=== PATIENT | male | born 1960 | race Caucasian/White ===

== ENCOUNTER 2016-09-28 10:29 | Inpatient (IN) ==
[2016-09-28] MEDS ORDERED: Furosemide 40 MG/4 ML VIAL IVP ONE (11:46)
[2016-09-28 12:49] LABS: Basophils % 0.4 %; Eosinophils # 0.1 K/mcL (0.0-0.6); Eosinophils % 1.8 %; Hematocrit 40.6 % (37.5-50.1); Hemoglobin 12.7 g/dL (12.9-16.9); Immature Granulocytes % 0.6 % (0-4); Lymphocytes # 0.5 K/mcL (0.6-4.6); Lymphocytes % 6.9 %; Mean Corpuscular HGB Conc 31.3 g/dL (31.6-35.5); Mean Corpuscular Hemoglobin 26.9 pg (28.0-33.3); Mean Platelet Volume 10.6 fL (9.4-12.4); Monocytes # 0.5 K/mcL (0.0-1.3); Monocytes % 6.8 %; Platelet Count 229 K/mcL (140-400); Red Blood Count 4.72 M/mcL (4.19-5.50); Red Cell Distribution Width 16.1 % (11.5-14.5); Segmented Neutrophils % 83.5 %
[2016-09-28 13:00] LABS: Bilirubin,Urine Negative (Negative); Blood,Urine Small (Negative); Clarity,Urine Clear (Clear); Color,Urine Yellow (Yellow); Glucose,Urine (UA) Normal (Normal); Ketones,Urine Negative (Negative); Leukocyte Esterase,Urine Negative (Negative); Nitrite,Urine Negative (Negative); Protein,Urine Negative (Neg-Trace); Specific Gravity,Urine 1.008 (1.010-1.025); Urobilinogen,Urine Normal (Normal)
[2016-09-28 13:03] LABS: Alanine Aminotransferase 16 Units/L (0-55); Albumin 3.5 g/dL (3.5-5.0); Albumin/Globulin Ratio 0.8 (1.1-2.2); Alkaline Phosphatase 61 Units/L (38-126); Aspartate Amino Transferase 26 Units/L (5-34); BUN/Creatinine Ratio 11 (6-26); Bilirubin,Total 0.8 mg/dL (0.2-1.2); Blood Urea Nitrogen 11 mg/dL (8-26); Calcium 9.4 mg/dL (8.6-10.8); Carbon Dioxide 32 mEq/L (19-29); Chloride 99 mEq/L (98-109); Globulin 4.2 g/dL (2.4-3.5); Glucose 98 mg/dL (70-99); Magnesium 2.3 mg/dL (1.6-2.6); Osmolality,Calculated 283 (280-300); Potassium 4.8 mEq/L (3.5-4.5); Sodium 137 mEq/L (136-145); Total Protein 7.7 g/dL (6.0-8.3); eGFR For African Americans > 60 (> 60); eGFR For Non-African Americans > 60 (> 60)
[2016-09-28 13:38] LABS: Bacteria,Urine Few per hpf (None-Few); Squamous Epithelial Cell,Urine Few per lpf (None-Few); WBC,Urine 0-3 per hpf (0-3)
--- NOTE | 2016-09-28 14:39 | Emergency Department Note ---
Disposition Clinical Impression: Anasarca, Morbid obesity Disposition: Admitted As Inpatient Condition: Fair Referrals: Erwin Mercado MD [Primary Care Provider] - Forms: Work/School Release, ED Satisfaction Letter Time of Disposition: 14:57 General Adult HPI - General Chief complaint: ED General Medical Stated complaint: BLE edema/scotal edema-sent per Dr Benitez Time Seen by Provider: 09/28/16 11:16 Source: patient Limitations: no limitations Nursing Notes Reviewed: Yes Vital Signs Reviewed: Yes - History of Present Illness HPI Narrative: 55-year-old in CDU because of painful scrotal edema. He has had scrotal edema evolving for the past 2 weeks. He had a single level mechanical fall 2 weeks ago at the outset. He was since seen in the ED and referred to Dr. Benitez. Dr. Benitez evaluated the patient along with a CT of the abdomen and pelvis and no injury was appreciated. He was since put on oral Lasix which she is taking for about a week with continued worsening of the scrotal edema. He was seen today by Dr. Benitez and referred back to the ED for IV diuretics. He was started on Bactrim last week think this might be related to panniculitis but there is been no response. He reports chronic erythema of the lower abdomen which is unchanged. Pt Subjective Complaint: Scrotal and penile pain Onset (ago): week(s) Location: genitals Radiation: non-radiation Pain Severity: moderate Pain Scale: 4 Quality: stabbing, aching Consistency: constant Improves with: nothing Worsens with: nothing Associated symptoms: Reports: denies other symptoms - Related Data Home Medications Medication Instructions Recorded Confirmed Aspirin Enteric Coated [Aspirin EC] 81 mg PO DAILY 07/26/16 09/28/16 FLUoxetine HCl [Prozac] 80 mg PO DAILY 07/26/16 09/28/16 Ferrous Sulfate [Iron] 325 mg PO DAILY 07/26/16 09/28/16 Lisinopril [Zestril] 40 mg PO DAILY 07/26/16 09/28/16 Omeprazole 40 mg PO DAILY 07/26/16 09/28/16 Potassium Chloride [Klor-Con 10 mg PO DAILY 07/26/16 09/28/16 Sprinkle] hydroCHLOROthiazide 12.5 mg PO DAILY 07/26/16 09/28/16 [Hydrochlorothiazide] ALPRAZolam [Xanax 0.5 MG Tablet] 0.5 mg PO BID PRN 09/28/16 09/28/16 Ibuprofen [Motrin] 200 - 800 mg PO Q6HR PRN 09/28/16 09/28/16 Menthol [Icy Hot] 1 patch TP AD PRN 09/28/16 09/28/16 Multivitamin [Multi-Day Vitamins] 1 tab PO DAILY 09/28/16 09/28/16 Sulfamethoxazole/Trimeth DS 1 tab PO BID 09/28/16 09/28/16 [Bactrim DS] Previous Rx's Medication Instructions Recorded Furosemide [Lasix] 40 mg PO DAILY #14 tablet 09/21/16 Allergies Allergy/AdvReac Type Severity Reaction Status Date / Time No Known Allergies Allergy Verified 09/28/16 10:31 All systems ED: reviewed and negative except as stated. Constitutional: Denies: fever, chills Cardiovascular: Denies: chest pain Gastrointestinal: Denies: abdominal pain, nausea, vomiting Genitourinary: Denies: dysuria Musculoskeletal: Denies: back pain Past Medical History - Past Medical History Attestation: Yes The following information was validated with the patient. Medical history: Reports: arthritis, DVT, GERD, hypertension, venous stasis Surgical history: Reports: colectomy, orthopedic, other, other Psychiatric history: Reports: anxiety, depression - Social History Smoking Status: Former smoker Smokeless Tobacco Status: No Alcohol use: Reports: rarely Drug use: Reports: none Physical Exam Morbidly obese male in no apparent distress. - General Limitations: no limitations General appearance: alert - Head Head exam: atraumatic, normocephalic - Eye Eye exam: Present: normal appearance - ENT ENT exam: normal exam - Neck Neck exam: Present: normal inspection - Chest Chest inspection: Present: normal inspection, symmetric chest wall rise - Respiratory Respiratory exam: Present: normal lung sounds bilaterally. Absent: respiratory distress - Cardiovascular Cardiovascular exam: Present: regular rate, normal rhythm - Abdominal Exam Abdominal exam: Present: soft, Non-Tender, other (Erythema along the lower abdomen and she was region which patient reports is typical for him) - Male exam: Present: other (Marketed scrotal edema bilaterally. Fair catheter is in place with good drainage.) - Expanded Lower Extremity Exam Lower leg exam: Present: swelling - Back Exam Back exam: Present: normal inspection. Absent: CVA tenderness (R), CVA tenderness (L) - Neurological Exam Neurological exam: Present: alert, oriented X3 - Psychiatric Psychiatric exam: Present: normal affect - Skin Skin exam: Present: warm, dry Course - Reevaluation(s) Reevaluation #1: D/W Dr. Ron to admit Time: 14:56 Vital Signs Temperature 98 F 09/28/16 10:31 Pulse Rate 74 09/28/16 10:31 Respiratory Rate 20 09/28/16 10:31 Blood Pressure 152/85 09/28/16 10:31 O2 Sat by Pulse Oximetry 92 09/28/16 10:31 Temperature 98 F 09/28/16 10:31 Pulse Rate 68 09/28/16 12:57 Respiratory Rate 18 09/28/16 12:57 Blood Pressure 140/77 09/28/16 12:57 O2 Sat by Pulse Oximetry 96 09/28/16 12:57 Oxygen Delivery Oxygen Delivery Room Air Medical Decision Making - Lab Data Result diagrams: 09/28/16 12:02 09/28/16 12:02 Lab Results 09/28/16 09/28/16 09/28/16 Range/Units 12:02 12:02 12:02 WBC 7.2 (4.3-11.1) K/mcL RBC 4.72 (4.19-5.50) M/mcL Hgb 12.7 L (12.9-16.9) g/dL Hct 40.6 (37.5-50.1) % MCV 86.0 (83.0-100.0) fL MCH 26.9 L (28.0-33.3) pg MCHC 31.3 L (31.6-35.5) g/dL RDW 16.1 H (11.5-14.5) % Plt Count 229 (140-400) K/mcL MPV 10.6 (9.4-12.4) fL Immature Gran % 0.6 (0-4) % Seg Neutrophils % 83.5 % Lymphocytes % 6.9 % Monocytes % 6.8 % Eosinophils % 1.8 % Basophils % 0.4 % Neutrophils # 6.0 (1.6-8.9) K/mcL Lymphocytes # 0.5 L (0.6-4.6) K/mcL Monocytes # 0.5 (0.0-1.3) K/mcL Eosinophils # 0.1 (0.0-0.6) K/mcL Basophils # 0.0 (0.0-0.2) K/mcL Sodium 137 (136-145) mEq/L Potassium 4.8 H (3.5-4.5) mEq/L Chloride 99 (98-109) mEq/L Carbon Dioxide 32 H (19-29) mEq/L BUN 11 (8-26) mg/dL Creatinine 0.97 (0.72-1.25) mg/dL Est GFR ( Amer) > 60 (> 60) Est GFR (Non-Af Amer) > 60 (> 60) BUN/Creatinine Ratio 11 (6-26) Glucose 98 (70-99) mg/dL Calculated Osmolality 283 (280-300) Calcium 9.4 (8.6-10.8) mg/dL Magnesium 2.3 (1.6-2.6) mg/dL Total Bilirubin 0.8 (0.2-1.2) mg/dL AST 26 (5-34) Units/L ALT 16 (0-55) Units/L Alkaline Phosphatase 61 (38-126) Units/L B-Natriuretic Peptide 31 (0-100) pg/mL Serum Total Protein 7.7 (6.0-8.3) g/dL Albumin 3.5 (3.5-5.0) g/dL Globulin 4.2 H (2.4-3.5) g/dL Albumin/Globulin Ratio 0.8 L (1.1-2.2) Urine Color (Yellow) Urine Clarity (Clear) Urine pH (5.0-8.0) pH Units Ur Specific Henderson (1.010-1.025) Urine Protein (Neg-Trace) mg/dL Urine Glucose (UA) (Normal) mg/dL Urine Ketones (Negative) mg/dL Urine Blood (Negative) Urine Nitrite (Negative) Urine Bilirubin (Negative) Urine Urobilinogen (Normal) mg/dL Ur Leukocyte Esterase (Negative) Urine Microscopic RBC (0-3) per hpf Urine Microscopic WBC (0-3) per hpf Ur Squamous Epith Cells (None-Few) per lpf Urine Bacteria (None-Few) per hpf 09/28/16 Range/Units 12:24 WBC (4.3-11.1) K/mcL RBC (4.19-5.50) M/mcL Hgb (12.9-16.9) g/dL Hct (37.5-50.1) % MCV (83.0-100.0) fL MCH (28.0-33.3) pg MCHC (31.6-35.5) g/dL RDW (11.5-14.5) % Plt Count (140-400) K/mcL MPV (9.4-12.4) fL Immature Gran % (0-4) % Seg Neutrophils % % Lymphocytes % % Monocytes % % Eosinophils % % Basophils % % Neutrophils # (1.6-8.9) K/mcL Lymphocytes # (0.6-4.6) K/mcL Monocytes # (0.0-1.3) K/mcL Eosinophils # (0.0-0.6) K/mcL Basophils # (0.0-0.2) K/mcL Sodium (136-145) mEq/L Potassium (3.5-4.5) mEq/L Chloride (98-109) mEq/L Carbon Dioxide (19-29) mEq/L BUN (8-26) mg/dL Creatinine (0.72-1.25) mg/dL Est GFR ( Amer) (> 60) Est GFR (Non-Af Amer) (> 60) BUN/Creatinine Ratio (6-26) Glucose (70-99) mg/dL Calculated Osmolality (280-300) Calcium (8.6-10.8) mg/dL Magnesium (1.6-2.6) mg/dL Total Bilirubin (0.2-1.2) mg/dL AST (5-34) Units/L ALT (0-55) Units/L Alkaline Phosphatase (38-126) Units/L B-Natriuretic Peptide (0-100) pg/mL Serum Total Protein (6.0-8.3) g/dL Albumin (3.5-5.0) g/dL Globulin (2.4-3.5) g/dL Albumin/Globulin Ratio (1.1-2.2) Urine Color Yellow (Yellow) Urine Clarity Clear (Clear) Urine pH 7.0 (5.0-8.0) pH Units Ur Specific Henderson 1.008 L (1.010-1.025) Urine Protein Negative (Neg-Trace) mg/dL Urine Glucose (UA) Normal (Normal) mg/dL Urine Ketones Negative (Negative) mg/dL Urine Blood Small H (Negative) Urine Nitrite Negative (Negative) Urine Bilirubin Negative (Negative) Urine Urobilinogen Normal (Normal) mg/dL Ur Leukocyte Esterase Negative (Negative) Urine Microscopic RBC 5-15 H (0-3) per hpf Urine Microscopic WBC 0-3 (0-3) per hpf Ur Squamous Epith Cells Few (None-Few) per lpf Urine Bacteria Few (None-Few) per hpf
[2016-09-28] MEDS ORDERED: Naloxone 0.4 MG/ML INJ IVP PRN (18:27)
--- NOTE | 2016-09-28 18:38 | Internal Med History&Physical ---
<Vamshi Dc - Last Filed: 09/28/16 20:29> Date of Encounter: 09/28/16 Time of Encounter: 16:00 Assessment and Plan (1) Scrotal edema Current visit: Yes Status: Acute Patient presents with acute scrotal edema and pain which he states has worsened over the past week. Patient was seen previously in the ED and placed on PO Bactrim on 09/25/16 of which he has taken 5 pills. He states the scrotal edema has only become worse. Patient placed on IV ceftriaxone 1 gm Q12 due to BMI and body habitus. Culture of the penis and suprapubic area ordered due to discharge. Urine culture ordered. Urology consult ordered. Will continue IVP Lasix 40 mg BID. (2) Prostatic hypertrophy Current visit: Yes Status: Suspected Patient presents with inability to urinate or ejaculate due to suspected prostatic hypertrophy. Fair catheter placed after 4 attempts. Urology consult ordered. PSA ordered. (3) Urinary (tract) obstruction Current visit: Yes Status: Acute Patient presents with inability to urinate or ejaculate. Fair catheter placed after 4 attempts. Urology consult ordered. (4) GERD (gastroesophageal reflux disease) Current visit: Yes Status: Chronic Patient presents with history of GERD. IV Protonix 40 mg daily ordered. Qualifiers: Esophagitis presence: esophagitis presence not specified Qualified Code(s) : K21.9 - Gastro-esophageal reflux disease without esophagitis (5) HTN (hypertension) Current visit: Yes Status: Chronic Patient presents with history of chronic hypertension. Monitor patient and vital signs. Will continue patient's lisinopril. Qualifiers: Hypertension type: essential hypertension Qualified Code(s): I10 - Essential (primary) hypertension (6) Morbid obesity Current visit: Yes Status: Chronic Patient presents with morbid obesity with BMI of 69.5. Patient states that he is currently going to be seen for gastric bypass surgery. Consult for nutrition placed to help educate patient with possible dietary plans. (7) DVT prophylaxis Current visit: Yes Status: Acute Patient to be placed on DVT prophylaxis due to admission protocol and bed rest status. Heparin 5,000 units SQ Q8 ordered. Internal Medicine - H&P: HPI Chief complaint: Painful scrotal edema Admitted From: Emergency Dept Plans for Post Hospital Care: Home History of present illness: Mr. Roca is a 55 year old male who presents from the ED with chief complaint of extreme scrotal swelling and pain. Patient states he fell approximately 1 week ago and began experiencing scrotal edema. He states he was seen at the ED previously and sent home on 800 mg twice a day Bactrim on 09/25/16. He reports his scrotal edema became much worse bring him back to the ED again upon Dr. Benitez's referral. Attempts to catheterize the patient took 4 tries which may suggest prostatic hypertrophy. Patient also states he has extreme burning when urinating, even in the catheter. Mr. Roca also reports he is able unable to ejaculate during sex which may also be due to prostatic hypertrophy. He has a history of arthritis, DVT in 2013 following knee surgery on his right knee, GERD , hypertension, and venous stasis. Upon examination, patient suprapubic area and penis appear to have discharge. Patient is at moderate risk for infection based on symptomatology will be placed as inpatient with orders for IV ceftriaxone 1 g every 12, urology consult due to repeated attempts for catheterization and suspected prostatic hypertrophy, culture of the suprapubic and penis area, consults for social work and PT, and urine culture. Patient to be monitored closely for signs of increased infection. Time spent with patient > 40 minutes. Past Med Surg Social Fam HX - Past Medical History Source: patient Medical history: arthritis, DVT, GERD, hypertension, venous stasis Psychiatric history: anxiety, depression - Past Surgical History Surgical History: colectomy, herniorrhaphy, orthopedic, other (Rt/Lt knee surgeries, Rt/Lt carpal tunnel surgeries, Neck surgery (C4,5,6,7)), other ( Tonsillectomy) - Social History Smoking Status: Former smoker Packs per day: 4 PPD - reports quitting in 2013 Smokeless Tobacco Status: No Alcohol use: rarely Drug use: none Current living situation: Home, With Family Activity Level: Independent ambulation Recent Out of Country Travel Within the Last 8 Weeks: No Exposure or Possible Exposure to Illness During Travel: No - Family History Father Race: Family Member Ethnicity: Non- Living Status: Age at : 84 Cause of : Prostate cancer Hx Family Cardiac Disorders: Yes (NV, HD) Hx Family Cancer: Yes (Prostate) Mother Race: Family Member Ethnicity: Non- Living Status: Still Living Hx Family Cardiac Disorders: Yes (NV) Hx Family Endocrine Disorder: Yes (DM) Hx Family Neurologic Disorders: Yes (Dementia) Brother History Unknown: Yes Sister Race: Family Member Ethnicity: Non- Living Status: Age at : 46 Cause of : PE following knee replacement Hx Family Cardiac Disorders: Yes (PE) Internal Medicine - H&P: Meds Aspirin Enteric Coated [Aspirin EC] 81 mg PO DAILY 07/26/16 [History] FLUoxetine HCl [Prozac] 80 mg PO DAILY 07/26/16 [History] Ferrous Sulfate [Iron] 325 mg PO DAILY 07/26/16 [History] Lisinopril [Zestril] 40 mg PO DAILY 07/26/16 [History] Omeprazole 40 mg PO DAILY 07/26/16 [History] Potassium Chloride [Klor-Con Sprinkle] 10 mg PO DAILY 07/26/16 [History] hydroCHLOROthiazide [Hydrochlorothiazide] 12.5 mg PO DAILY 07/26/16 [History] Furosemide [Lasix] 40 mg PO DAILY #14 tablet 09/21/16 [Rx] ALPRAZolam [Xanax 0.5 MG Tablet] 0.5 mg PO BID PRN 09/28/16 [History] Ibuprofen [Motrin] 200 - 800 mg PO Q6HR PRN 09/28/16 [History] Menthol [Icy Hot] 1 patch TP AD PRN 09/28/16 [History] Multivitamin [Multi-Day Vitamins] 1 tab PO DAILY 09/28/16 [History] Sulfamethoxazole/Trimeth DS [Bactrim DS] 1 tab PO BID 09/28/16 [History] Allergies No Known Allergies Allergy (Verified 09/28/16 10:31) All Systems PM: A 10-system review of systems was performed and is negative for pertinent findings except as documented above in the HPI. - Constitutional Constitutional: as per HPI, falls, no chills, no fever(s), no night sweats - EENT Eyes: no change in vision, no discharge, no pain, no photophobia Ears: no ear discharge, no ear pain, no tinnitus Nose, mouth and throat: no dysphagia, no nasal discharge, no neck pain, no sore throat - Breasts Breasts: as per HPI - Cardiovascular Cardiovascular ROS IM: no chest pain, no diaphoresis, no dyspnea, no lightheadedness, no palpitations, no syncope - Respiratory Respiratory: no cough, no dyspnea, no wheezing, no excessive phlegm production - Gastrointestinal Gastrointestinal: no abdominal pain, no diarrhea, no hematemesis, no hematochezia, no melena, no nausea, no vomiting - Genitourinary Genitourinary ROS male: as per HPI, difficulty urinating, genital pain, scrotal swelling, testicular pain, urinary hesitancy, other (Urinary burning) - Musculoskeletal Musculoskeletal ROS IM: no numbness, no tingling - Integumentary Integumentary IM: no rash, no unusual bruising - Neurological Neurological ROS: no confusion, no convulsions, no focal weakness, no numbness, no tingling, no tremor(s) - Psychiatric Psychiatric: as per HPI - Endocrine Endocrine IM: as per HPI - Hematologic/Lymphatic Hematologic/Lymphatic: no easy bruising - Allergic/Immunologic Allergic/Immunologic: as per HPI - Constitutional Vitals: Temp Pulse Resp BP Pulse Ox 98.1 F 64 16 127/83 93 09/28/16 16:03 09/28/16 16:03 09/28/16 16:03 09/28/16 16:03 09/28/16 16:03 General appearance: Present: cooperative, mild distress, A&O X 3, morbidly obese , pleasant, answers questions appropriately - Head Head exam: Present: atraumatic, normocephalic - Eye Eye exam: Present: PERRL, conjuntiva pink, sclera anicteric Pupils: Present: PERRL - ENT ENT exam: Present: normal exam, normal external ear exam - Neck Neck exam general surgery: Present: supple, trachea midline. Absent: lymphadenopathy - Respiratory Respiratory exam: Present: CTAB. Absent: accessory muscle use, rales, rhonchi, wheezes - Cardiovascular Cardiovascular exam: Present: RRR, +S1, +S2. Absent: diastolic murmur, gallop, rubs, systolic murmur - GI/Abdominal GI/Abdominal exam: Present: normal bowel sounds, soft, no peritoneal signs. Absent: distended, tenderness - Rectal Rectal exam: Present: deferred - exam: Present: scrotal swelling, testicular tenderness External exam: Present: erythema, swelling - Extremities Exam Extremities exam: Present: pedal edema, warm, radial pulses palpable and symetrical - Back Exam Back exam: Present: normal inspection - Neurological Exam Neurological exam: Present: CN II-XII intact, oriented X3, no focal deficits. Absent: pronater drift, facial droop, speech deficit - Psychiatric Psychiatric exam: Present: normal affect, normal mood - Skin Skin exam: Present: dry, intact Internal Med - H&P Results - Labs CBC & Chem 7: 09/28/16 12:02 09/28/16 12:02 - Diagnostic Studies Chest x-ray Additional comments: Impressions Chest X-Ray 09/28/16 11:47 IMPRESSION: No active cardiopulmonary disease D/ / Meliton Rowe MD / Meliton Rowe MD Interpreting Provider: Meliton Rowe MD <Kp Ron P - Last Filed: 09/28/16 21:10> Date of Encounter: 09/28/16 Internal Medicine - H&P: HPI History of present illness: Mr. Roca is a 55 year old male All Systems PM: A 10-system review of systems was performed and is negative for pertinent findings except as documented above in the HPI. - Constitutional Vitals: Temp Pulse Resp BP Pulse Ox 97.7 F 69 17 137/80 96 09/28/16 20:59 09/28/16 20:59 09/28/16 20:59 09/28/16 20:59 09/28/16 21:02 Internal Med - H&P Results - Labs CBC & Chem 7: 09/28/16 12:02 09/28/16 12:02 - Attending Attestation I examined this patient and my medical decision-making was reviewed with the Resident Physician/CARTRIDGE LO[employer]ER. I agree with the documented findings, disposition and treatment plan as described except to the extent set forth below. Need urology evaluation for possible benign hypertrophy of prostate. We will get ultrasound of scrotum tomorrow
[2016-09-28] MEDS: Acetaminophen 325 MG TABLET PO PRN (20:55)
[2016-09-28] MEDS: ALPRAZolam 0.5 MG TABLET PO PRN (21:40)
[2016-09-28] MEDS: Pantoprazole 40 MG VIAL IVP SCH (21:40)
[2016-09-28] MEDS: Furosemide 40 MG/4 ML VIAL IVP SCH (21:40)
[2016-09-29] MEDS: *HR* Heparin 5,000 UNIT/ML VIAL SQ SCH ×4 (00:08→23:03)
[2016-09-29] MEDS ORDERED: *HR* LORazepam 2 MG/ML VIAL IVP ONE (02:30)
[2016-09-29 04:29] LABS: Bilirubin,Urine Negative (Negative); Blood,Urine Negative (Negative); Clarity,Urine Clear (Clear); Color,Urine Yellow (Yellow); Glucose,Urine (UA) Normal (Normal); Ketones,Urine Negative (Negative); Leukocyte Esterase,Urine Small (Negative); Nitrite,Urine Negative (Negative); PH,Urine 6.5 pH Units (5.0-8.0); Protein,Urine Negative (Neg-Trace); Specific Gravity,Urine 1.016 (1.010-1.025)
[2016-09-29 04:30] LABS: Bacteria,Urine None Seen per hpf (None-Few); Hyaline Casts,Urine None Seen per lpf (None-Few); Squamous Epithelial Cell,Urine Moderate per lpf (None-Few); WBC,Urine 0-3 per hpf (0-3)
[2016-09-29 05:43] LABS: Basophils % 0.7 %; Eosinophils # 0.2 K/mcL (0.0-0.6); Eosinophils % 3.3 %; Hematocrit 39.4 % (37.5-50.1); Hemoglobin 12.4 g/dL (12.9-16.9); Immature Granulocytes % 0.5 % (0-4); Lymphocytes # 0.7 K/mcL (0.6-4.6); Lymphocytes % 12.3 %; Mean Corpuscular HGB Conc 31.5 g/dL (31.6-35.5); Mean Corpuscular Volume 85.7 fL (83.0-100.0); Mean Platelet Volume 10.4 fL (9.4-12.4); Monocytes # 0.5 K/mcL (0.0-1.3); Monocytes % 9.8 %; Neutrophils # 4.1 K/mcL (1.6-8.9); Platelet Count 242 K/mcL (140-400); Red Cell Distribution Width 16.2 % (11.5-14.5); Segmented Neutrophils % 73.4 %
[2016-09-29 05:56] LABS: Hemoglobin A1C 5.7 %
[2016-09-29 06:09] LABS: Alanine Aminotransferase 15 Units/L (0-55); Albumin 3.2 g/dL (3.5-5.0); Albumin/Globulin Ratio 0.8 (1.1-2.2); Alkaline Phosphatase 60 Units/L (38-126); Aspartate Amino Transferase 17 Units/L (5-34); BUN/Creatinine Ratio 11 (6-26); Bilirubin,Total 0.9 mg/dL (0.2-1.2); Blood Urea Nitrogen 12 mg/dL (8-26); Calcium 9.1 mg/dL (8.6-10.8); Carbon Dioxide 32 mEq/L (19-29); Chloride 97 mEq/L (98-109); Chol/HDL Ratio 4.9 (0-4.9); Cholesterol 168 mg/dL (< 200); Globulin 3.8 g/dL (2.4-3.5); Glucose 108 mg/dL (70-99); HDL Cholesterol 34 mg/dL (40-59); LDL Cholesterol,Calculated 112 mg/dL (0-99); Osmolality,Calculated 282 (280-300); Phosphorous 5.1 mg/dL (2.3-4.7); Sodium 136 mEq/L (136-145); Triglycerides 108 mg/dL (< 150); eGFR For African Americans > 60 (> 60); eGFR For Non-African Americans > 60 (> 60)
[2016-09-29] MEDS: Pantoprazole 40 MG VIAL IVP SCH (08:51)
[2016-09-29] MEDS: hydroCHLOROthiazide 25 MG TABLET PO SCH (08:52)
[2016-09-29] MEDS: Aspirin Enteric Coated 81 MG Tablet PO SCH (08:52)
[2016-09-29] MEDS: Lisinopril 20 MG TABLET PO SCH (08:52)
[2016-09-29] MEDS: FLUoxetine 20 MG CAPSULE PO SCH (08:52)
[2016-09-29] MEDS: Furosemide 40 MG/4 ML VIAL IVP SCH ×2 (08:52→16:32)
[2016-09-29] MEDS: ALPRAZolam 0.5 MG TABLET PO PRN (08:58)
--- NOTE | 2016-09-29 09:52 | Urology - Consult Note ---
Date of Encounter: 09/29/16 Time of Encounter: 09:50 - Assessment and Plan (1) Scrotal edema Current Visit: Yes Status: Acute Assessment and plan: scrotal elevation at all times. continue lasix per primary team. Will continue to follow. continue with catheter. Urology CN:[email or web address] Consult date: 09/29/16 Reason for consult Urology: Other (scrotal edema) Requesting physician: Kp Ron History of present illness: Jeramie is a 56 y/o male with history of recent admission to the hospital for scrotal edema. Patient has had good uop since arrival to hospital. The patient states that his scrotal swelling is about the same. Past Med Surg Social Fam HX - Past Medical History Medical history: arthritis, DVT, GERD, hypertension, venous stasis Psychiatric history: anxiety, depression - Past Surgical History Surgical History: colectomy, herniorrhaphy, orthopedic, other (Rt/Lt knee surgeries, Rt/Lt carpal tunnel surgeries, Neck surgery (C4,5,6,7)), other ( Tonsillectomy) - Social History Smoking Status: Former smoker Packs per day: 4 PPD - reports quitting in 2012 Smokeless Tobacco Status: No Alcohol use: rarely Drug use: none - Family History Father Race: Family Member Ethnicity: Non- Living Status: Age at : 84 Cause of : Prostate cancer Hx Family Cardiac Disorders: Yes ([place], HD) Hx Family Cancer: Yes (Prostate) Mother Race: Family Member Ethnicity: Non- Living Status: Still Living Hx Family Cardiac Disorders: Yes ([place]) Hx Family Endocrine Disorder: Yes (DM) Hx Family Neurologic Disorders: Yes (Dementia) Brother History Unknown: Yes Sister Race: Family Member Ethnicity: Non- Living Status: Age at : 46 Cause of : PE following knee replacement Hx Family Cardiac Disorders: Yes (PE) Medications and Allergies Aspirin Enteric Coated [Aspirin EC] 81 mg PO DAILY 07/26/16 [History] FLUoxetine HCl [Prozac] 80 mg PO DAILY 07/26/16 [History] Ferrous Sulfate [Iron] 325 mg PO DAILY 07/26/16 [History] Lisinopril [Zestril] 40 mg PO DAILY 07/26/16 [History] Omeprazole 40 mg PO DAILY 07/26/16 [History] Potassium Chloride [Klor-Con Sprinkle] 10 mg PO DAILY 07/26/16 [History] hydroCHLOROthiazide [Hydrochlorothiazide] 12.5 mg PO DAILY 07/26/16 [History] Furosemide [Lasix] 40 mg PO DAILY #14 tablet 09/21/16 [Rx] ALPRAZolam [Xanax 0.5 MG Tablet] 0.5 mg PO BID PRN 09/28/16 [History] Ibuprofen [Motrin] 200 - 800 mg PO Q6HR PRN 09/28/16 [History] Menthol [Icy Hot] 1 patch TP AD PRN 09/28/16 [History] Multivitamin [Multi-Day Vitamins] 1 tab PO DAILY 09/28/16 [History] Sulfamethoxazole/Trimeth DS [Bactrim DS] 1 tab PO BID 09/28/16 [History] Allergies No Known Allergies Allergy (Verified 09/28/16 10:31) Review of Systems - Constitutional no chills - EENT Nose, mouth and throat: no dizziness - Cardiovascular no chest pain - Respiratory no cough - Gastrointestinal no abdominal pain - Genitourinary as per HPI Exam Initial Vital Signs Temp Pulse Resp BP Pulse Ox 98 F 74 20 152/85 92 09/28/16 10:31 09/28/16 10:31 09/28/16 10:31 09/28/16 10:31 09/28/16 10:31 - General physical appearance Present: well developed - Eyes Present: PERRL - ENT Present: normal nares - Neck Present: no masses - Respiratory Present: normal respiratory effort - Cardiovascular Cardiovascular exam IM: RRR - Abdomen Abdomen: Present: soft - Genitourinary other (marked scrotal edema) Urology Results - Labs 09/29/16 05:21 09/29/16 05:21 Abnormal lab results Hgb 12.4 g/dL (12.9-16.9) L 09/29/16 05:21 MCH 27.0 pg (28.0-33.3) L 09/29/16 05:21 MCHC 31.5 g/dL (31.6-35.5) L 09/29/16 05:21 RDW 16.2 % (11.5-14.5) H 09/29/16 05:21 Chloride 97 mEq/L (98-109) L 09/29/16 05:21 Carbon Dioxide 32 mEq/L (19-29) H 09/29/16 05:21 Glucose 108 mg/dL (70-99) H 09/29/16 05:21 Hemoglobin A1c 5.7 % (-5.6) H 09/29/16 05:21 Phosphorus 5.1 mg/dL (2.3-4.7) H 09/29/16 05:21 Albumin 3.2 g/dL (3.5-5.0) L 09/29/16 05:21 Globulin 3.8 g/dL (2.4-3.5) H 09/29/16 05:21 Albumin/Globulin Ratio 0.8 (1.1-2.2) L 09/29/16 05:21 LDL Cholesterol, Calc 112 mg/dL (0-99) H 09/29/16 05:21 HDL Cholesterol 34 mg/dL (40-59) L 09/29/16 05:21 Urine Urobilinogen 2.0 mg/dL (Normal) H 09/29/16 04:00 Ur Leukocyte Esterase Small (Negative) H 09/29/16 04:00 Urine Microscopic RBC 3-5 per hpf (0-3) H 09/29/16 04:00 Ur Squamous Epith Cells Moderate per lpf (None-Few) H 09/29/16 04:00 Ur Culture Indicated? YES (NO) A 09/29/16 04:00 Diabetes panel 09/29/16 09/29/16 Range/Units 05:21 05:21 Sodium 136 (136-145) mEq/L Potassium 4.0 (3.5-4.5) mEq/L Chloride 97 L (98-109) mEq/L Carbon Dioxide 32 H (19-29) mEq/L BUN 12 (8-26) mg/dL Creatinine 1.05 (0.72-1.25) mg/dL Glucose 108 H (70-99) mg/dL Hemoglobin A1c 5.7 H ( - 5.6) % Calcium 9.1 (8.6-10.8) mg/dL AST 17 (5-34) Units/L ALT 15 (0-55) Units/L Alkaline Phosphatase 60 (38-126) Units/L Albumin 3.2 L (3.5-5.0) g/dL Triglycerides 108 (< 150) mg/dL HDL Cholesterol 34 L (40-59) mg/dL Calcium panel 09/29/16 Range/Units 05:21 Calcium 9.1 (8.6-10.8) mg/dL Phosphorus 5.1 H (2.3-4.7) mg/dL Albumin 3.2 L (3.5-5.0) g/dL Pituitary panel 09/29/16 Range/Units 05:21 Sodium 136 (136-145) mEq/L Potassium 4.0 (3.5-4.5) mEq/L Chloride 97 L (98-109) mEq/L Carbon Dioxide 32 H (19-29) mEq/L BUN 12 (8-26) mg/dL Creatinine 1.05 (0.72-1.25) mg/dL Glucose 108 H (70-99) mg/dL Calcium 9.1 (8.6-10.8) mg/dL Adrenal panel 09/29/16 Range/Units 05:21 Sodium 136 (136-145) mEq/L Potassium 4.0 (3.5-4.5) mEq/L Chloride 97 L (98-109) mEq/L Carbon Dioxide 32 H (19-29) mEq/L BUN 12 (8-26) mg/dL Creatinine 1.05 (0.72-1.25) mg/dL Glucose 108 H (70-99) mg/dL Calcium 9.1 (8.6-10.8) mg/dL Total Bilirubin 0.9 (0.2-1.2) mg/dL AST 17 (5-34) Units/L ALT 15 (0-55) Units/L Alkaline Phosphatase 60 (38-126) Units/L Albumin 3.2 L (3.5-5.0) g/dL All other labs normal. Consult Discharge Plan - Plan Referrals: Erwin Mercado MD [Primary Care Provider] -
--- NOTE | 2016-09-29 10:04 | Internal Med Progress Note ---
<Mile Avendano - Last Filed: 09/29/16 17:54> Date of Encounter: 09/29/16 Time of Encounter: 10:00 - Assessment and plan (1) Scrotal edema Current Visit: Yes Status: Acute Assessment and plan: Scrotal edema that is tender, non erythematous Maybe infection due to penile discharge and worsening of edema. But cannot rule out trauma induced edema and inflammation due to recent trauma. Normal WBC 5.5, afebrile Plan: -continue lasix -scrotal elevation -continue rocephin -cultures for urine pending -culture for wound pending -U/S for scrotum ordered -will continue to monitor (2) Prostatic hypertrophy Current Visit: Yes Status: Suspected Assessment and plan: Prostatic hypertrophy. Patient had urinary retention which he admits has gotten worse. He reports 1tsp urination this past week. Fair cath in place after 4 attempts to insert (3) Urinary (tract) obstruction Current Visit: Yes Status: Acute Assessment and plan: Fair cath placed. See above (4) HTN (hypertension) Current Visit: Yes Status: Chronic Qualifiers: Hypertension type: essential hypertension Qualified Code(s): I10 - Essential (primary) hypertension (5) GERD (gastroesophageal reflux disease) Current Visit: Yes Status: Chronic Assessment and plan: History of GERD Continue home medication of omeprazole Patient has no complaints about nausea and vomiting Qualifiers: Esophagitis presence: esophagitis presence not specified Qualified Code(s) : K21.9 - Gastro-esophageal reflux disease without esophagitis - Subjective Interval history: Patient is sitting up in bed comfortably watching television He stated to still have scrotal tenderness he denies chest pain, shortness of breath, fever, chills, nausea, vomiting - Constitutional Vitals: Temp Pulse Resp BP Pulse Ox 97.7 F 64 18 122/81 94 09/29/16 07:02 09/29/16 07:02 09/29/16 07:02 09/29/16 07:02 09/29/16 07:02 General appearance: Present: cooperative, mild distress, A&O X 3, morbidly obese , pleasant, answers questions appropriately Exam: Gen.: Vitals noted. No acute distress. AAOx3 HEENT: oropharynx clear, Normocephalic, atraumatic Neck: Supple. No adenopathy. Cardiac: RRR, no murmur, +S1/S2 Pulmonary: mild diffuse wheezing and coarse breath sounds throughout both lungs , equal chest expansion Abdomen: soft, nontender, Bowel sounds noted, no guarding Scrotum: no erythema, prominent swelling Back: Nontender throughout. Extremities: BLE edema, no cyanosis or clubbing Neuro: A&Ox3, moves all extremities, no focal deficits Psych: Appropriate mood and behavior Internal Medicine: Result - Labs CBC & Chem 7: 09/29/16 05:21 09/29/16 05:21 Labs: Short CBC 09/29/16 Range/Units 05:21 WBC 5.5 (4.3-11.1) K/mcL Hgb 12.4 L (12.9-16.9) g/dL Hct 39.4 (37.5-50.1) % Plt Count 242 (140-400) K/mcL Neutrophils # 4.1 (1.6-8.9) K/mcL BMP 09/29/16 05:21 Sodium 136 Potassium 4.0 Chloride 97 L Carbon Dioxide 32 H BUN 12 Creatinine 1.05 Glucose 108 H Calcium 9.1 Liver Function 09/29/16 Range/Units 05:21 Total Bilirubin 0.9 (0.2-1.2) mg/dL AST 17 (5-34) Units/L ALT 15 (0-55) Units/L Alkaline Phosphatase 60 (38-126) Units/L Albumin 3.2 L (3.5-5.0) g/dL Urine 09/29/16 Range/Units 04:00 Urine Color Yellow (Yellow) Urine Clarity Clear (Clear) Urine pH 6.5 (5.0-8.0) pH Units Ur Specific [place] 1.016 (1.010-1.025) Urine Protein Negative (Neg-Trace) mg/dL Urine Glucose (UA) Normal (Normal) mg/dL - VTE Documentation of Mechanical Device: Graduated compression elastic hosiery Consult Discharge Plan - Plan Referrals: Erwin Mercado MD [Primary Care Provider] - 10/06/16 10:40 am () <Kp Ron - Last Filed: 09/29/16 18:18> Date of Encounter: 09/29/16 - Constitutional Vitals: Temp Pulse Resp BP Pulse Ox 98.7 F 64 18 112/71 92 09/29/16 15:38 09/29/16 15:38 09/29/16 15:38 09/29/16 15:38 09/29/16 15:38 Internal Medicine: Result - Labs CBC & Chem 7: 09/29/16 05:21 09/29/16 05:21 Labs: Short CBC 09/29/16 Range/Units 05:21 WBC 5.5 (4.3-11.1) K/mcL Hgb 12.4 L (12.9-16.9) g/dL Hct 39.4 (37.5-50.1) % Plt Count 242 (140-400) K/mcL Neutrophils # 4.1 (1.6-8.9) K/mcL BMP 09/29/16 05:21 Sodium 136 Potassium 4.0 Chloride 97 L Carbon Dioxide 32 H BUN 12 Creatinine 1.05 Glucose 108 H Calcium 9.1 Liver Function 09/29/16 Range/Units 05:21 Total Bilirubin 0.9 (0.2-1.2) mg/dL AST 17 (5-34) Units/L ALT 15 (0-55) Units/L Alkaline Phosphatase 60 (38-126) Units/L Albumin 3.2 L (3.5-5.0) g/dL Urine 09/29/16 Range/Units 04:00 Urine Color Yellow (Yellow) Urine Clarity Clear (Clear) Urine pH 6.5 (5.0-8.0) pH Units Ur Specific [place] 1.016 (1.010-1.025) Urine Protein Negative (Neg-Trace) mg/dL Urine Glucose (UA) Normal (Normal) mg/dL - Impressions Impressions Scrotum Ultrasound 09/29/16 10:30 IMPRESSION: Marked edema of the scrotal wall. Small bilateral hydroceles. No other significant abnormality. D/ / Vivek Zavala MD / Vivek Zavala MD Interpreting Provider: Vivek Zavala MD - Attending Attestation I examined this patient and my medical decision-making was reviewed with the Resident Physician. I agree with the documented findings, disposition and treatment plan as described except to the extent set forth below. Ultrasound SCROTUM: MINIMAL BILATERAL HYDROCELE. WE will follow recommendations from urology
[2016-09-29] MEDS: Acetaminophen 325 MG TABLET PO PRN (12:36)
[2016-09-30 05:22] LABS: Basophils % 0.8 %; Eosinophils # 0.2 K/mcL (0.0-0.6); Hemoglobin 12.3 g/dL (12.9-16.9); Immature Granulocytes % 0.6 % (0-4); Lymphocytes # 0.9 K/mcL (0.6-4.6); Lymphocytes % 16.3 %; Mean Corpuscular Hemoglobin 25.6 pg (28.0-33.3); Mean Corpuscular Volume 85.2 fL (83.0-100.0); Mean Platelet Volume 10.6 fL (9.4-12.4); Monocytes # 0.5 K/mcL (0.0-1.3); Monocytes % 10.2 %; Neutrophils # 3.6 K/mcL (1.6-8.9); Platelet Count 243 K/mcL (140-400); Red Blood Count 4.81 M/mcL (4.19-5.50); Red Cell Distribution Width 15.9 % (11.5-14.5); Segmented Neutrophils % 68.1 %
[2016-09-30] MEDS: Acetaminophen 325 MG TABLET PO PRN ×3 (06:00→20:26)
[2016-09-30] MEDS ORDERED: Perflutren Lipid Microsphere 1.3 ML in 0.9 % Sodium Chloride 8.7 ML IVP ONE (07:51)
--- NOTE | 2016-09-30 08:31 | Urology Progress Note ---
Date of Encounter: 09/30/16 Time of Encounter: 08:29 - Assessment and Plan (1) Scrotal edema Current Visit: Yes Status: Acute Assessment and plan: continue with scrotal elevation. will resolve when volume statis improves. Progress Note Narrative: patient seen. good uop so far. having echo today. still with sig scrotal swelling per the patient. Objective Initial Vital Signs Temp Pulse Resp BP Pulse Ox 98 F 74 20 152/85 92 09/28/16 10:31 09/28/16 10:31 09/28/16 10:31 09/28/16 10:31 09/28/16 10:31 - Abdomen Present: soft - Genitourinary Present: other (marked scrotal edema. ) - Labs 09/30/16 04:33 09/29/16 05:21 - VTE Documentation of Mechanical Device: Graduated compression elastic hosiery Consult Discharge Plan - Plan Referrals: Erwin Mercado MD [Primary Care Provider] - 10/06/16 10:40 am ()
[2016-09-30] MEDS: Lisinopril 20 MG TABLET PO SCH (09:07)
[2016-09-30] MEDS: Aspirin Enteric Coated 81 MG Tablet PO SCH (09:07)
[2016-09-30] MEDS: FLUoxetine 20 MG CAPSULE PO SCH (09:07)
[2016-09-30] MEDS: hydroCHLOROthiazide 25 MG TABLET PO SCH (09:07)
[2016-09-30] MEDS: Furosemide 40 MG/4 ML VIAL IVP SCH ×2 (09:08→16:04)
[2016-09-30] MEDS: *HR* Heparin 5,000 UNIT/ML VIAL SQ SCH ×3 (09:08→23:53)
[2016-09-30 09:11] LABS: Alanine Aminotransferase 15 Units/L (0-55); Albumin 3.3 g/dL (3.5-5.0); Albumin/Globulin Ratio 0.8 (1.1-2.2); Alkaline Phosphatase 63 Units/L (38-126); Aspartate Amino Transferase 19 Units/L (5-34); BUN/Creatinine Ratio 14 (6-26); Bilirubin,Total 0.7 mg/dL (0.2-1.2); Blood Urea Nitrogen 14 mg/dL (8-26); Calcium 9.2 mg/dL (8.6-10.8); Carbon Dioxide 33 mEq/L (19-29); Chloride 95 mEq/L (98-109); Globulin 4.1 g/dL (2.4-3.5); Glucose 120 mg/dL (70-99); Osmolality,Calculated 280 (280-300); Potassium 4.3 mEq/L (3.5-4.5); Sodium 134 mEq/L (136-145); Total Protein 7.4 g/dL (6.0-8.3); eGFR For African Americans > 60 (> 60); eGFR For Non-African Americans > 60 (> 60)
[2016-09-30] MEDS: ALPRAZolam 0.5 MG TABLET PO PRN ×2 (09:12→20:26)
--- NOTE | 2016-09-30 10:28 | Internal Med Progress Note ---
<Mile Avendano - Last Filed: 09/30/16 14:00> Date of Encounter: 09/30/16 Time of Encounter: 10:25 - Assessment and plan (1) Scrotal edema Current Visit: Yes Status: Acute Assessment and plan: Scrotal edema that is tender but according to patient has gone down and not as tender Maybe epididymitis due to recent trauma and obesity. Testicular torsion unlikely due to normal u/s. Normal WBC 5.3, afebrile Echo LVEF: 55% normal Plan: -increased lasix to 60mg -scrotal elevation -continue rocephin day 3 -urine culture- no growth -wound culture- normal skin hank -U/S for scrotum revealed edema b/l and hydroceles -will continue to monitor (2) Prostatic hypertrophy Current Visit: Yes Status: Suspected Assessment and plan: Prostatic hypertrophy Patient had urinary retention which he admits has gotten worse He reports 1tsp urination every time he urinated this past week prior to admission Fair cath in place (3) Urinary (tract) obstruction Current Visit: Yes Status: Acute Assessment and plan: Fair cath placed. See above (4) HTN (hypertension) Current Visit: Yes Status: Chronic Assessment and plan: blood pressure is controlled on home meds. stable 117/76 Qualifiers: Hypertension type: essential hypertension Qualified Code(s): I10 - Essential (primary) hypertension (5) GERD (gastroesophageal reflux disease) Current Visit: Yes Status: Chronic Assessment and plan: History of GERD Continue home medication of omeprazole Patient has no complaints about nausea and vomiting Qualifiers: Esophagitis presence: esophagitis presence not specified Qualified Code(s) : K21.9 - Gastro-esophageal reflux disease without esophagitis - Subjective Interval history: Patient is sitting up in bed comfortably watching television He stated to still have scrotal tenderness but it is improved from yesterday Patient believes swelling has gone down a little I/O: 200/1250 weight: today 195 , yesterday 20kg he denies chest pain, shortness of breath, fever, chills, nausea, vomiting - Constitutional Vitals: Temp Pulse Resp BP Pulse Ox 97.8 F 60 18 128/79 95 09/30/16 07:06 09/30/16 07:06 09/30/16 07:06 09/30/16 07:06 09/30/16 07:06 General appearance: Present: cooperative, mild distress, A&O X 3, morbidly obese , pleasant, answers questions appropriately Exam: Gen.: Vitals noted. No acute distress. AAOx3 HEENT: PERRL/EOMI, oropharynx clear, Normocephalic, atraumatic Neck: Supple. No adenopathy. Cardiac: RRR, no murmur, +S1/S2 Pulmonary: CTA bilaterally, no wheezes, rales or rhonchi, equal chest expansion Abdomen: soft, nontender, Bowel sounds noted, no guarding Back: Nontender throughout. MSK: ROM intact, no joint swelling noted Extremities: BLE edema, no cyanosis or clubbing Scrotum: diffuse edema Psych: Appropriate mood and behavior Internal Medicine: Result - Labs CBC & Chem 7: 09/30/16 04:33 09/30/16 08:51 Labs: Short CBC 09/30/16 Range/Units 04:33 WBC 5.3 (4.3-11.1) K/mcL Hgb 12.3 L (12.9-16.9) g/dL Hct 41.0 (37.5-50.1) % Plt Count 243 (140-400) K/mcL Neutrophils # 3.6 (1.6-8.9) K/mcL BMP 09/30/16 08:51 Sodium 134 L Potassium 4.3 Chloride 95 L Carbon Dioxide 33 H BUN 14 Creatinine 1.01 Glucose 120 H Calcium 9.2 Liver Function 09/30/16 Range/Units 08:51 Total Bilirubin 0.7 (0.2-1.2) mg/dL AST 19 (5-34) Units/L ALT 15 (0-55) Units/L Alkaline Phosphatase 63 (38-126) Units/L Albumin 3.3 L (3.5-5.0) g/dL - Impressions Impressions Scrotum Ultrasound 09/29/16 10:30 IMPRESSION: Marked edema of the scrotal wall. Small bilateral hydroceles. No other significant abnormality. D/ / Vivek Zavala MD / Vivek Zavala MD Interpreting Provider: Vivek Zavala MD - VTE Documentation of Mechanical Device: Graduated compression elastic hosiery Consult Discharge Plan - Plan Referrals: Erwin Mercado MD [Primary Care Provider] - 10/06/16 10:40 am () <Kp Ron - Last Filed: 09/30/16 18:04> Date of Encounter: 09/30/16 - Constitutional Vitals: Temp Pulse Resp BP Pulse Ox 97.9 F 72 17 109/67 92 09/30/16 16:07 09/30/16 16:07 09/30/16 16:07 09/30/16 16:07 09/30/16 16:07 Internal Medicine: Result - Labs CBC & Chem 7: 09/30/16 04:33 09/30/16 08:51 Labs: Short CBC 09/30/16 Range/Units 04:33 WBC 5.3 (4.3-11.1) K/mcL Hgb 12.3 L (12.9-16.9) g/dL Hct 41.0 (37.5-50.1) % Plt Count 243 (140-400) K/mcL Neutrophils # 3.6 (1.6-8.9) K/mcL BMP 09/30/16 08:51 Sodium 134 L Potassium 4.3 Chloride 95 L Carbon Dioxide 33 H BUN 14 Creatinine 1.01 Glucose 120 H Calcium 9.2 Liver Function 09/30/16 Range/Units 08:51 Total Bilirubin 0.7 (0.2-1.2) mg/dL AST 19 (5-34) Units/L ALT 15 (0-55) Units/L Alkaline Phosphatase 63 (38-126) Units/L Albumin 3.3 L (3.5-5.0) g/dL - Attending Attestation I examined this patient and my medical decision-making was reviewed with the Resident Physician. I agree with the documented findings, disposition and treatment plan as described except to the extent set forth below. failed outpatient oral diuretics treatment for massive scrotal swelling minimal bilateral hydrocele normal EF slightly low alb (3.3) Plan will get CT tomorrow if renal function permits and no recent abdominal imaging
[2016-09-30] MEDS: Nystatin Cream 15 GM TUBE TP SCH ×2 (16:05→20:26)
[2016-09-30] MEDS ORDERED: Furosemide 60 MG in 0.9 % Sodium Chloride 50 ML IVPB SCH (21:00)
[2016-10-01] MEDS: Acetaminophen 325 MG TABLET PO PRN ×2 (05:00→22:15)
[2016-10-01 05:27] LABS: Basophils # 0.1 K/mcL (0.0-0.2); Basophils % 1.2 %; Eosinophils # 0.2 K/mcL (0.0-0.6); Eosinophils % 4.7 %; Hematocrit 42.1 % (37.5-50.1); Hemoglobin 13.1 g/dL (12.9-16.9); Immature Granulocytes % 0.6 % (0-4); Mean Corpuscular HGB Conc 31.1 g/dL (31.6-35.5); Mean Corpuscular Hemoglobin 26.7 pg (28.0-33.3); Mean Corpuscular Volume 85.9 fL (83.0-100.0); Mean Platelet Volume 10.7 fL (9.4-12.4); Monocytes # 0.5 K/mcL (0.0-1.3); Monocytes % 9.7 %; Neutrophils # 3.1 K/mcL (1.6-8.9); Platelet Count 258 K/mcL (140-400); Red Cell Distribution Width 16.1 % (11.5-14.5); Segmented Neutrophils % 62.8 %
[2016-10-01 05:40] LABS: BUN/Creatinine Ratio 17 (6-26); Blood Urea Nitrogen 19 mg/dL (8-26); Calcium 9.1 mg/dL (8.6-10.8); Carbon Dioxide 35 mEq/L (19-29); Chloride 94 mEq/L (98-109); Glucose 105 mg/dL (70-99); Osmolality,Calculated 285 (280-300); Potassium 3.9 mEq/L (3.5-4.5); Sodium 136 mEq/L (136-145); eGFR For African Americans > 60 (> 60); eGFR For Non-African Americans > 60 (> 60)
[2016-10-01] MEDS: FLUoxetine 20 MG CAPSULE PO SCH (08:14)
[2016-10-01] MEDS: Aspirin Enteric Coated 81 MG Tablet PO SCH (08:14)
[2016-10-01] MEDS: *HR* Heparin 5,000 UNIT/ML VIAL SQ SCH ×2 (08:14→18:07)
[2016-10-01] MEDS: Furosemide 40 MG/4 ML VIAL IVP SCH ×2 (08:14→18:07)
[2016-10-01] MEDS: Nystatin Cream 15 GM TUBE TP SCH ×2 (08:15→22:15)
[2016-10-01] MEDS: Lisinopril 20 MG TABLET PO SCH (08:15)
[2016-10-01] MEDS: hydroCHLOROthiazide 25 MG TABLET PO SCH (08:15)
--- NOTE | 2016-10-01 09:39 | Internal Med Progress Note ---
<Mile Avendano - Last Filed: 10/01/16 13:58> Date of Encounter: 10/01/16 Time of Encounter: 09:37 - Assessment and plan (1) Scrotal edema Current Visit: Yes Status: Acute Assessment and plan: -Scrotal edema is tender but according to patient the edema has decreased and not as tender -Most likely due to recent trauma and obesity. -Testicular torsion unlikely due to normal u/s -urine culture- no growth -wound culture- normal skin hank -U/S for scrotum revealed edema b/l and hydroceles -Normal WBC 4.9, afebrile -Echo LVEF: 55% normal Plan: -continue lasix to 60mg -continue scrotal elevation -continue rocephin day 4 -will continue to monitor (2) Prostatic hypertrophy Current Visit: Yes Status: Suspected Assessment and plan: Prostatic hypertrophy Patient had urinary retention which he admits has gotten worse He reports 1tsp urination every time he urinated this past week prior to admission Fair cath in place I/O: 800/450 (3) Urinary (tract) obstruction Current Visit: Yes Status: Acute Assessment and plan: Fair cath placed See above (4) HTN (hypertension) Current Visit: Yes Status: Chronic Assessment and plan: blood pressure is controlled on home meds. stable 107/65 Qualifiers: Hypertension type: essential hypertension Qualified Code(s): I10 - Essential (primary) hypertension (5) GERD (gastroesophageal reflux disease) Current Visit: Yes Status: Chronic Assessment and plan: History of GERD Continue home medication of omeprazole Patient has no complaints about nausea and vomiting Qualifiers: Esophagitis presence: esophagitis presence not specified Qualified Code(s) : K21.9 - Gastro-esophageal reflux disease without esophagitis (6) DVT prophylaxis Current Visit: Yes Status: Acute Assessment and plan: Compression juxtalite bandages - Subjective Interval history: Patient is sitting up in bed comfortably watching television He stated to still have scrotal tenderness but it has improved some Patient believes swelling has gone down a little. he denies chest pain, shortness of breath, fever, chills, nausea, vomiting - Constitutional Vitals: Temp Pulse Resp BP Pulse Ox 97.4 F L 57 16 103/70 92 10/01/16 07:32 10/01/16 07:32 10/01/16 07:32 10/01/16 07:32 10/01/16 07:32 General appearance: Present: cooperative, mild distress, A&O X 3, morbidly obese , pleasant, answers questions appropriately Exam: Gen.: Vitals noted. No acute distress. AAOx3 HEENT: PERRL/EOMI, oropharynx clear, Normocephalic, atraumatic Neck: Supple. No adenopathy. Cardiac: RRR, no murmur, +S1/S2 Pulmonary: CTA bilaterally, no wheezes, rales or rhonchi, equal chest expansion Abdomen: soft, nontender, Bowel sounds noted, no guarding Back: Nontender throughout. Extremities: BLE edema, stasis bilaterally scrotum : edematous, tender (less on both accounts from yesterday ), no lesions Psych: Appropriate mood and behavior Internal Medicine: Result - Labs CBC & Chem 7: 10/01/16 04:09 10/01/16 04:09 Labs: Short CBC 10/01/16 Range/Units 04:09 WBC 4.9 (4.3-11.1) K/mcL Hgb 13.1 (12.9-16.9) g/dL Hct 42.1 (37.5-50.1) % Plt Count 258 (140-400) K/mcL Neutrophils # 3.1 (1.6-8.9) K/mcL BMP 10/01/16 04:09 Sodium 136 Potassium 3.9 Chloride 94 L Carbon Dioxide 35 H BUN 19 Creatinine 1.11 Glucose 105 H Calcium 9.1 - VTE Documentation of Mechanical Device: Graduated compression elastic hosiery Consult Discharge Plan - Plan Referrals: Erwin Mercado MD [Primary Care Provider] - 10/06/16 10:40 am () <Kp Ron - Last Filed: 10/01/16 17:00> Date of Encounter: 10/01/16 - Constitutional Vitals: Temp Pulse Resp BP Pulse Ox 98.5 F 71 16 111/73 93 10/01/16 16:41 10/01/16 16:41 10/01/16 16:41 10/01/16 16:41 10/01/16 16:41 Internal Medicine: Result - Labs CBC & Chem 7: 10/01/16 04:09 10/01/16 04:09 Labs: Short CBC 10/01/16 Range/Units 04:09 WBC 4.9 (4.3-11.1) K/mcL Hgb 13.1 (12.9-16.9) g/dL Hct 42.1 (37.5-50.1) % Plt Count 258 (140-400) K/mcL Neutrophils # 3.1 (1.6-8.9) K/mcL BMP 10/01/16 04:09 Sodium 136 Potassium 3.9 Chloride 94 L Carbon Dioxide 35 H BUN 19 Creatinine 1.11 Glucose 105 H Calcium 9.1 - Attending Attestation I examined this patient and my medical decision-making was reviewed with the Resident Physician. I agree with the documented findings, disposition and treatment plan as described except to the extent set forth below. cont IV diuresis monitor K and crat
--- NOTE | 2016-10-01 17:32 | Urology Progress Note ---
Date of Encounter: 10/01/16 Time of Encounter: 17:30 - Assessment and Plan (1) Scrotal edema Current Visit: Yes Status: Acute Assessment and plan: continue with catheter at this time to aid with strict i/o. continue with diuresis. Progress Note Narrative: patient seen. sig fluid taken off so far. patient states scrotal edema improved Objective Initial Vital Signs Temp Pulse Resp BP Pulse Ox 98 F 74 20 152/85 92 09/28/16 10:31 09/28/16 10:31 09/28/16 10:31 09/28/16 10:31 09/28/16 10:31 - General physical appearance Present: well developed - Abdomen Present: soft - Genitourinary Present: other (improved scrotal edema) - Labs 10/01/16 04:09 10/01/16 04:09 Diabetes panel 10/01/16 Range/Units 04:09 Sodium 136 (136-145) mEq/L Potassium 3.9 (3.5-4.5) mEq/L Chloride 94 L (98-109) mEq/L Carbon Dioxide 35 H (19-29) mEq/L BUN 19 (8-26) mg/dL Creatinine 1.11 (0.72-1.25) mg/dL Glucose 105 H (70-99) mg/dL Calcium 9.1 (8.6-10.8) mg/dL Calcium panel 10/01/16 Range/Units 04:09 Calcium 9.1 (8.6-10.8) mg/dL Pituitary panel 10/01/16 Range/Units 04:09 Sodium 136 (136-145) mEq/L Potassium 3.9 (3.5-4.5) mEq/L Chloride 94 L (98-109) mEq/L Carbon Dioxide 35 H (19-29) mEq/L BUN 19 (8-26) mg/dL Creatinine 1.11 (0.72-1.25) mg/dL Glucose 105 H (70-99) mg/dL Calcium 9.1 (8.6-10.8) mg/dL Adrenal panel 10/01/16 Range/Units 04:09 Sodium 136 (136-145) mEq/L Potassium 3.9 (3.5-4.5) mEq/L Chloride 94 L (98-109) mEq/L Carbon Dioxide 35 H (19-29) mEq/L BUN 19 (8-26) mg/dL Creatinine 1.11 (0.72-1.25) mg/dL Glucose 105 H (70-99) mg/dL Calcium 9.1 (8.6-10.8) mg/dL - VTE Documentation of Mechanical Device: Graduated compression elastic hosiery Consult Discharge Plan - Plan Referrals: Erwin Mercado MD [Primary Care Provider] - 10/06/16 10:40 am ()
[2016-10-02] MEDS: *HR* Heparin 5,000 UNIT/ML VIAL SQ SCH ×3 (00:27→16:12)
[2016-10-02 06:09] LABS: Basophils % 0.7 %; Eosinophils # 0.2 K/mcL (0.0-0.6); Eosinophils % 4.5 %; Hematocrit 44.5 % (37.5-50.1); Hemoglobin 13.8 g/dL (12.9-16.9); Immature Granulocytes % 1.1 % (0-4); Lymphocytes # 0.9 K/mcL (0.6-4.6); Lymphocytes % 16.5 %; Mean Corpuscular Hemoglobin 25.9 pg (28.0-33.3); Mean Corpuscular Volume 83.5 fL (83.0-100.0); Mean Platelet Volume 10.6 fL (9.4-12.4); Monocytes # 0.4 K/mcL (0.0-1.3); Neutrophils # 3.7 K/mcL (1.6-8.9); Platelet Count 249 K/mcL (140-400); Red Blood Count 5.33 M/mcL (4.19-5.50); Segmented Neutrophils % 69.2 %
[2016-10-02 06:24] LABS: BUN/Creatinine Ratio 21 (6-26); Blood Urea Nitrogen 21 mg/dL (8-26); Calcium 9.2 mg/dL (8.6-10.8); Carbon Dioxide 29 mEq/L (19-29); Chloride 95 mEq/L (98-109); Glucose 114 mg/dL (70-99); Magnesium 2.3 mg/dL (1.6-2.6); Osmolality,Calculated 280 (280-300); Sodium 133 mEq/L (136-145); eGFR For African Americans > 60 (> 60); eGFR For Non-African Americans > 60 (> 60)
[2016-10-02 06:25] LABS: Potassium 4.9 mEq/L (3.5-4.5)
[2016-10-02 06:34] LABS: Platelet Estimate Normal (Normal)
[2016-10-02] MEDS: FLUoxetine 20 MG CAPSULE PO SCH (09:05)
[2016-10-02] MEDS: Aspirin Enteric Coated 81 MG Tablet PO SCH (09:05)
[2016-10-02] MEDS: Furosemide 40 MG/4 ML VIAL IVP SCH ×2 (09:06→16:12)
[2016-10-02] MEDS: Nystatin Cream 15 GM TUBE TP SCH ×2 (09:09→21:14)
--- NOTE | 2016-10-02 09:54 | Urology Progress Note ---
Date of Encounter: 10/02/16 Time of Encounter: 09:53 - Assessment and Plan (1) Scrotal edema Current Visit: Yes Status: Acute Assessment and plan: improving. continue cath at this time. Progress Note Narrative: Patient seen. still diuresing. scrotal swelling improved. Objective Initial Vital Signs Temp Pulse Resp BP Pulse Ox 98 F 74 20 152/85 92 09/28/16 10:31 09/28/16 10:31 09/28/16 10:31 09/28/16 10:31 09/28/16 10:31 - General physical appearance Present: well developed - Abdomen Present: soft - Genitourinary Present: other (improved scrotal edema. ) - Labs 10/02/16 05:33 10/02/16 05:33 Diabetes panel 10/02/16 Range/Units 05:33 Sodium 133 L (136-145) mEq/L Potassium 4.9 H D (3.5-4.5) mEq/L Chloride 95 L (98-109) mEq/L Carbon Dioxide 29 (19-29) mEq/L BUN 21 (8-26) mg/dL Creatinine 1.00 (0.72-1.25) mg/dL Glucose 114 H (70-99) mg/dL Calcium 9.2 (8.6-10.8) mg/dL Calcium panel 10/02/16 Range/Units 05:33 Calcium 9.2 (8.6-10.8) mg/dL Pituitary panel 10/02/16 Range/Units 05:33 Sodium 133 L (136-145) mEq/L Potassium 4.9 H D (3.5-4.5) mEq/L Chloride 95 L (98-109) mEq/L Carbon Dioxide 29 (19-29) mEq/L BUN 21 (8-26) mg/dL Creatinine 1.00 (0.72-1.25) mg/dL Glucose 114 H (70-99) mg/dL Calcium 9.2 (8.6-10.8) mg/dL Adrenal panel 10/02/16 Range/Units 05:33 Sodium 133 L (136-145) mEq/L Potassium 4.9 H D (3.5-4.5) mEq/L Chloride 95 L (98-109) mEq/L Carbon Dioxide 29 (19-29) mEq/L BUN 21 (8-26) mg/dL Creatinine 1.00 (0.72-1.25) mg/dL Glucose 114 H (70-99) mg/dL Calcium 9.2 (8.6-10.8) mg/dL - VTE Documentation of Mechanical Device: Graduated compression elastic hosiery Consult Discharge Plan - Plan Referrals: Erwin Mercado MD [Primary Care Provider] - 10/06/16 10:40 am ()
--- NOTE | 2016-10-02 10:23 | Internal Med Progress Note ---
<Mile Avendano - Last Filed: 10/02/16 10:21> Date of Encounter: 10/02/16 Time of Encounter: 08:45 - Assessment and plan (1) Scrotal edema Current Visit: Yes Status: Acute Assessment and plan: -Scrotum is edematous and tender but according to patient both have improved -Most likely due to recent trauma and obesity. -Testicular torsion unlikely due to normal u/s -urine culture- no growth -wound culture- normal skin hank -U/S for scrotum revealed edema b/l and hydroceles -Normal WBC 5.4, afebrile -Echo LVEF: 55% normal -potassium and magnesium normal Plan: -continue lasix to 60mg -continue scrotal elevation -continue rocephin day 5 -strict I/O -continue to monitor potassium and magnesium -continue tele monitoring (2) Prostatic hypertrophy Current Visit: Yes Status: Suspected Assessment and plan: Prostatic hypertrophy Patient had urinary retention which he admits has gotten worse prior to admission I/O: 100/700 Plan: Fair cath in place (3) Urinary (tract) obstruction Current Visit: Yes Status: Acute Assessment and plan: Fair cath placed See above (4) HTN (hypertension) Current Visit: Yes Status: Chronic Assessment and plan: blood pressure is stable BP 123/63 holding home lisinopril and hydrochlorothiazide Qualifiers: Hypertension type: essential hypertension Qualified Code(s): I10 - Essential (primary) hypertension (5) GERD (gastroesophageal reflux disease) Current Visit: Yes Status: Chronic Assessment and plan: History of GERD Continue home medication of omeprazole Patient has no complaints about nausea and vomiting Qualifiers: Esophagitis presence: esophagitis presence not specified Qualified Code(s) : K21.9 - Gastro-esophageal reflux disease without esophagitis (6) DVT prophylaxis Current Visit: Yes Status: Acute Assessment and plan: Compression juxtalite bandages at night - Subjective Interval history: Patient is sitting up in bed comfortably watching television He stated to still have scrotal tenderness but it has improved. Patient believes swelling has improved. he denies chest pain, shortness of breath, fever, chills, nausea, vomiting His only complaints is the tele monitoring wires on his chest that get in the way. - Constitutional Vitals: Temp Pulse Resp BP Pulse Ox 97.6 F 65 18 145/82 95 10/02/16 07:49 07/22/17 07:49 10/02/16 07:49 10/02/16 07:49 10/02/16 07:49 General appearance: Present: cooperative, mild distress, A&O X 3, morbidly obese , pleasant, answers questions appropriately Exam: Gen.: Vitals noted. No acute distress. AAOx3 HEENT: PERRL/EOMI, oropharynx clear, Normocephalic, atraumatic Neck: Supple. No adenopathy. Cardiac: RRR, no murmur, +S1/S2 Pulmonary: CTA bilaterally, no wheezes, rales or rhonchi, equal chest expansion Abdomen: soft, nontender, Bowel sounds noted, no guarding Back: Nontender throughout. Scrotum: edematous, tender Extremities: BLE edema lower extremities, nontender calf, no cyanosis or clubbing Neuro: A&Ox3, moves all extremities, no focal deficits Psych: Appropriate mood and behavior Internal Medicine: Result - Labs CBC & Chem 7: 10/02/16 05:33 10/02/16 05:33 Labs: Short CBC 10/02/16 Range/Units 05:33 WBC 5.4 (4.3-11.1) K/mcL Hgb 13.8 (12.9-16.9) g/dL Hct 44.5 (37.5-50.1) % Plt Count 249 (140-400) K/mcL Neutrophils # 3.7 (1.6-8.9) K/mcL BMP 10/02/16 05:33 Sodium 133 L Potassium 4.9 H D Chloride 95 L Carbon Dioxide 29 BUN 21 Creatinine 1.00 Glucose 114 H Calcium 9.2 - VTE Documentation of Mechanical Device: Graduated compression elastic hosiery Consult Discharge Plan - Plan Referrals: Erwin Mercado MD [Primary Care Provider] - 10/06/16 10:40 am () <Kp Ron P - Last Filed: 10/02/16 13:12> Date of Encounter: 10/02/16 - Constitutional Vitals: Temp Pulse Resp BP Pulse Ox 98.2 F 62 18 109/75 94 10/02/16 11:44 10/02/16 11:44 10/02/16 11:44 10/02/16 11:44 10/02/16 11:44 Internal Medicine: Result - Labs CBC & Chem 7: 10/02/16 05:33 10/02/16 05:33 Labs: Short CBC 10/02/16 Range/Units 05:33 WBC 5.4 (4.3-11.1) K/mcL Hgb 13.8 (12.9-16.9) g/dL Hct 44.5 (37.5-50.1) % Plt Count 249 (140-400) K/mcL Neutrophils # 3.7 (1.6-8.9) K/mcL BMP 10/02/16 05:33 Sodium 133 L Potassium 4.9 H D Chloride 95 L Carbon Dioxide 29 BUN 21 Creatinine 1.00 Glucose 114 H Calcium 9.2 - Attending Attestation I examined this patient and my medical decision-making was reviewed with the Resident Physician. I agree with the documented findings, disposition and treatment plan as described except to the extent set forth below. likely home soon. urology input appreciated.
[2016-10-02] MEDS: Acetaminophen 325 MG TABLET PO PRN (16:20)
[2016-10-03] MEDS: *HR* Heparin 5,000 UNIT/ML VIAL SQ SCH ×3 (00:41→16:58)
[2016-10-03 03:43] LABS: Basophils # 0.1 K/mcL (0.0-0.2); Basophils % 0.8 %; Eosinophils # 0.3 K/mcL (0.0-0.6); Eosinophils % 4.5 %; Hematocrit 42.8 % (37.5-50.1); Hemoglobin 13.2 g/dL (12.9-16.9); Immature Granulocytes % 0.5 % (0-4); Lymphocytes % 17.3 %; Mean Corpuscular HGB Conc 30.8 g/dL (31.6-35.5); Mean Corpuscular Volume 84.4 fL (83.0-100.0); Mean Platelet Volume 10.5 fL (9.4-12.4); Monocytes # 0.5 K/mcL (0.0-1.3); Neutrophils # 4.1 K/mcL (1.6-8.9); Platelet Count 252 K/mcL (140-400); Red Blood Count 5.07 M/mcL (4.19-5.50); Red Cell Distribution Width 15.8 % (11.5-14.5); Segmented Neutrophils % 67.9 %
[2016-10-03 03:55] LABS: BUN/Creatinine Ratio 24 (6-26); Blood Urea Nitrogen 22 mg/dL (8-26); Calcium 8.9 mg/dL (8.6-10.8); Carbon Dioxide 32 mEq/L (19-29); Chloride 94 mEq/L (98-109); Glucose 113 mg/dL (70-99); Magnesium 1.9 mg/dL (1.6-2.6); Osmolality,Calculated 282 (280-300); Sodium 134 mEq/L (136-145); eGFR For African Americans > 60 (> 60); eGFR For Non-African Americans > 60 (> 60)
[2016-10-03 04:06] LABS: Potassium 3.6 mEq/L (3.5-4.5)
[2016-10-03] MEDS: Aspirin Enteric Coated 81 MG Tablet PO SCH (08:49)
[2016-10-03] MEDS: FLUoxetine 20 MG CAPSULE PO SCH (08:49)
[2016-10-03] MEDS: Furosemide 40 MG/4 ML VIAL IVP SCH ×2 (08:49→16:58)
--- NOTE | 2016-10-03 08:57 | Urology Progress Note ---
Date of Encounter: 10/03/16 Time of Encounter: 08:56 - Assessment and Plan (1) Scrotal edema Current Visit: Yes Status: Inactive Assessment and plan: much improved. will dc catheter. f/u with urology as needed. Progress Note Narrative: patient seen. much better scrotal edema. Objective Initial Vital Signs Temp Pulse Resp BP Pulse Ox 98 F 74 20 152/85 92 09/28/16 10:31 09/28/16 10:31 09/28/16 10:31 09/28/16 10:31 09/28/16 10:31 - General physical appearance Present: well developed - Abdomen Present: soft - Genitourinary Present: other (improved scrotal edema. ) - Labs 10/03/16 02:37 10/03/16 02:37 Diabetes panel 10/03/16 Range/Units 02:37 Sodium 134 L (136-145) mEq/L Potassium 3.6 D (3.5-4.5) mEq/L Chloride 94 L (98-109) mEq/L Carbon Dioxide 32 H (19-29) mEq/L BUN 22 (8-26) mg/dL Creatinine 0.93 (0.72-1.25) mg/dL Glucose 113 H (70-99) mg/dL Calcium 8.9 (8.6-10.8) mg/dL Calcium panel 10/03/16 Range/Units 02:37 Calcium 8.9 (8.6-10.8) mg/dL Pituitary panel 10/03/16 Range/Units 02:37 Sodium 134 L (136-145) mEq/L Potassium 3.6 D (3.5-4.5) mEq/L Chloride 94 L (98-109) mEq/L Carbon Dioxide 32 H (19-29) mEq/L BUN 22 (8-26) mg/dL Creatinine 0.93 (0.72-1.25) mg/dL Glucose 113 H (70-99) mg/dL Calcium 8.9 (8.6-10.8) mg/dL Adrenal panel 10/03/16 Range/Units 02:37 Sodium 134 L (136-145) mEq/L Potassium 3.6 D (3.5-4.5) mEq/L Chloride 94 L (98-109) mEq/L Carbon Dioxide 32 H (19-29) mEq/L BUN 22 (8-26) mg/dL Creatinine 0.93 (0.72-1.25) mg/dL Glucose 113 H (70-99) mg/dL Calcium 8.9 (8.6-10.8) mg/dL - VTE Documentation of Mechanical Device: Graduated compression elastic hosiery Consult Discharge Plan - Plan Referrals: Erwin Mercado MD [Primary Care Provider] - 10/06/16 10:40 am ()
[2016-10-03] MEDS: Nystatin Cream 15 GM TUBE TP SCH ×2 (09:36→20:48)
--- NOTE | 2016-10-03 12:42 | Internal Med Progress Note ---
<Mile Avendano - Last Filed: 10/03/16 12:39> Date of Encounter: 10/03/16 Time of Encounter: 09:35 - Assessment and plan (1) Scrotal edema Current Visit: Yes Status: Inactive Assessment and plan: -Scrotal edema is much improved. Tenderness according to patient has improved -Most likely due to recent trauma and obesity. -Testicular torsion unlikely due to normal u/s -urine culture- no growth -wound culture- normal skin hank -U/S for scrotum revealed edema b/l and hydroceles -Normal WBC 6, afebrile -Echo LVEF: 55% normal -potassium and magnesium normal Plan: -continue lasix to 60mg -continue scrotal elevation -continue rocephin day 6 -strict I/O -continue to monitor potassium and magnesium -continue tele monitoring -discharged tomorrow -follow-up with urology as needed (2) Prostatic hypertrophy Current Visit: Yes Status: Suspected Assessment and plan: Prostatic hypertrophy Patient had urinary retention which he admits has gotten worse prior to admission I/O: 530/1700 Plan: Fair cath d/c per urology will follow-up with urology is needed (3) Urinary (tract) obstruction Current Visit: Yes Status: Acute Assessment and plan: Fair cath will be d/c will monitor urine output See above (4) HTN (hypertension) Current Visit: Yes Status: Chronic Assessment and plan: blood pressure is stable BP 123/72 holding home lisinopril and hydrochlorothiazide Qualifiers: Hypertension type: essential hypertension Qualified Code(s): I10 - Essential (primary) hypertension (5) GERD (gastroesophageal reflux disease) Current Visit: Yes Status: Chronic Assessment and plan: History of GERD Continue home medication of omeprazole Patient has no complaints about nausea and vomiting Qualifiers: Esophagitis presence: esophagitis presence not specified Qualified Code(s) : K21.9 - Gastro-esophageal reflux disease without esophagitis (6) DVT prophylaxis Current Visit: Yes Status: Acute Assessment and plan: Compression juxtalite bandages at night - Subjective Interval history: Patient is sitting up in bed comfortably watching television He stated to still have scrotal tenderness but it has improved. Patient believes swelling has improved. he denies chest pain, shortness of breath, fever, chills, nausea, vomiting - Constitutional Vitals: Temp Pulse Resp BP Pulse Ox 98.4 F 65 18 123/72 94 10/03/16 11:54 10/03/16 11:54 10/03/16 11:54 10/03/16 11:54 10/03/16 11:54 General appearance: Present: cooperative, mild distress, A&O X 3, morbidly obese , pleasant, answers questions appropriately Exam: Gen.: Vitals noted. No acute distress. AAOx3 HEENT: PERRL oropharynx clear, Normocephalic, atraumatic Neck: Supple. No adenopathy. Cardiac: RRR, no murmur, +S1/S2 Pulmonary: CTA bilaterally, no wheezes, rales or rhonchi, equal chest expansion Abdomen: soft, nontender, Bowel sounds noted, no guarding Back: Nontender throughout. Scrotum: edema, no erythema Extremities: BLE edema, nontender calf, no clubbing Neuro: A&Ox3, moves all extremities, no focal deficits Psych: Appropriate mood and behavior Internal Medicine: Result - Labs CBC & Chem 7: 10/03/16 02:37 10/03/16 02:37 Labs: Short CBC 10/03/16 Range/Units 02:37 WBC 6.0 (4.3-11.1) K/mcL Hgb 13.2 (12.9-16.9) g/dL Hct 42.8 (37.5-50.1) % Plt Count 252 (140-400) K/mcL Neutrophils # 4.1 (1.6-8.9) K/mcL BMP 10/03/16 02:37 Sodium 134 L Potassium 3.6 D Chloride 94 L Carbon Dioxide 32 H BUN 22 Creatinine 0.93 Glucose 113 H Calcium 8.9 - VTE Documentation of Mechanical Device: Graduated compression elastic hosiery Consult Discharge Plan - Plan Referrals: Erwin Mercado MD [Primary Care Provider] - 10/06/16 10:40 am () <Kp Ron - Last Filed: 10/03/16 14:58> Date of Encounter: 10/03/16 - Constitutional Vitals: Temp Pulse Resp BP Pulse Ox 98.4 F 65 18 123/72 94 10/03/16 11:54 10/03/16 11:54 10/03/16 11:54 10/03/16 11:54 10/03/16 11:54 Internal Medicine: Result - Labs CBC & Chem 7: 10/03/16 02:37 10/03/16 02:37 Labs: Short CBC 10/03/16 Range/Units 02:37 WBC 6.0 (4.3-11.1) K/mcL Hgb 13.2 (12.9-16.9) g/dL Hct 42.8 (37.5-50.1) % Plt Count 252 (140-400) K/mcL Neutrophils # 4.1 (1.6-8.9) K/mcL BMP 10/03/16 02:37 Sodium 134 L Potassium 3.6 D Chloride 94 L Carbon Dioxide 32 H BUN 22 Creatinine 0.93 Glucose 113 H Calcium 8.9 - Attending Attestation I examined this patient and my medical decision-making was reviewed with the Resident Physician. I agree with the documented findings, disposition and treatment plan as described except to the extent set forth below. likely home tomorrow
[2016-10-03] MEDS: Acetaminophen 325 MG TABLET PO PRN (13:52)
[2016-10-04] MEDS: *HR* Heparin 5,000 UNIT/ML VIAL SQ SCH ×2 (00:06→08:09)
[2016-10-04 04:40] LABS: Basophils # 0.1 K/mcL (0.0-0.2); Basophils % 0.9 %; Eosinophils # 0.2 K/mcL (0.0-0.6); Eosinophils % 3.9 %; Hemoglobin 13.6 g/dL (12.9-16.9); Immature Granulocytes % 0.7 % (0-4); Lymphocytes # 1.1 K/mcL (0.6-4.6); Lymphocytes % 18.8 %; Mean Corpuscular HGB Conc 31.6 g/dL (31.6-35.5); Mean Corpuscular Hemoglobin 26.7 pg (28.0-33.3); Mean Corpuscular Volume 84.3 fL (83.0-100.0); Mean Platelet Volume 10.7 fL (9.4-12.4); Monocytes # 0.5 K/mcL (0.0-1.3); Monocytes % 9.5 %; Neutrophils # 3.7 K/mcL (1.6-8.9); Platelet Count 244 K/mcL (140-400); Red Cell Distribution Width 15.5 % (11.5-14.5); Segmented Neutrophils % 66.2 %
[2016-10-04 04:55] LABS: BUN/Creatinine Ratio 26 (6-26); Blood Urea Nitrogen 24 mg/dL (8-26); Calcium 9.1 mg/dL (8.6-10.8); Carbon Dioxide 27 mEq/L (19-29); Chloride 93 mEq/L (98-109); Glucose 113 mg/dL (70-99); Magnesium 2.1 mg/dL (1.6-2.6); Osmolality,Calculated 279 (280-300); Potassium 3.8 mEq/L (3.5-4.5); Sodium 132 mEq/L (136-145); eGFR For African Americans > 60 (> 60); eGFR For Non-African Americans > 60 (> 60)
[2016-10-04] MEDS: FLUoxetine 20 MG CAPSULE PO SCH (08:09)
[2016-10-04] MEDS: Furosemide 40 MG/4 ML VIAL IVP SCH (08:09)
[2016-10-04] MEDS: Aspirin Enteric Coated 81 MG Tablet PO SCH (08:09)
[2016-10-04] MEDS: Nystatin Cream 15 GM TUBE TP SCH (10:17)
[2016-10-04 11:05] VITALS: BP 146/87
--- NOTE | 2016-10-04 13:35 | Discharge Summary ---
<Mile Avendano - Last Filed: 10/04/16 13:32> Date of Encounter: 10/04/16 Time of Encounter: 10:00 - Discharge Diagnosis (1) Scrotal edema Priority: Primary Status: Inactive Comments: -Scrotal edema has much improved. According to the patient the tenderness has much improved from admission. -Most likely due to recent trauma and obesity. -Testicular torsion unlikely due to normal u/s -urine culture- no growth -wound culture- normal skin hank -U/S for scrotum revealed edema b/l and hydroceles -Normal WBC 5.4, afebrile -Echo LVEF: 55% normal -potassium and magnesium normal -patient is to follow up with nephrology- Dr. Jonas (2) Prostatic hypertrophy Priority: Secondary Status: Suspected Comments: Prostatic hypertrophy Patient had urinary retention which he admits has gotten worse prior to admission. According to the patient the urinary retention has resolved. He is able to void without dysuria, hematuria. The patient is to follow up with urology outpatient as needed. (3) Urinary (tract) obstruction Priority: Secondary Status: Acute Comments: Most likely due to prostatic hypertrophy. Fair catheter was removed. According to the patient the urinary retention has resolved. He is able to void without dysuria, hematuria. (4) HTN (hypertension) Priority: Secondary Status: Chronic Comments: blood pressure is stable BP 129/81 He may resume home lisinopril and hydrochlorothiazide Qualifiers: Hypertension type: essential hypertension Qualified Code(s): I10 - Essential (primary) hypertension (5) GERD (gastroesophageal reflux disease) Priority: Secondary Status: Chronic Comments: History of GERD Continue home medication of omeprazole Patient has no complaints about nausea and vomiting Qualifiers: Esophagitis presence: esophagitis presence not specified Qualified Code(s) : K21.9 - Gastro-esophageal reflux disease without esophagitis (6) DVT prophylaxis Priority: Secondary Status: Acute Comments: Compression juxtalite bandages at night - Discharge Medications Home Medications: Aspirin Enteric Coated [Aspirin EC] 81 mg PO DAILY 07/26/16 [History] FLUoxetine HCl [Prozac] 80 mg PO DAILY 07/26/16 [History] Ferrous Sulfate [Iron] 325 mg PO DAILY 07/26/16 [History] Lisinopril [Zestril] 40 mg PO DAILY 07/26/16 [History] Omeprazole 40 mg PO DAILY 07/26/16 [History] Potassium Chloride [Klor-Con Sprinkle] 10 mg PO DAILY 07/26/16 [History] hydroCHLOROthiazide [Hydrochlorothiazide] 12.5 mg PO DAILY 07/26/16 [History] ALPRAZolam [Xanax 0.5 MG Tablet] 0.5 mg PO BID PRN 09/28/16 [History] Ibuprofen [Motrin] 200 - 800 mg PO Q6HR PRN 09/28/16 [History] Menthol [Icy Hot] 1 patch TP AD PRN 09/28/16 [History] Multivitamin [Multi-Day Vitamins] 1 tab PO DAILY 09/28/16 [History] Allergies/Adverse Reactions: Allergies No Known Allergies Allergy (Verified 09/28/16 10:31) Date of admission: 09/28/16 22:58 Primary care physician: Erwin Mercado MD Consults: 09/30/16 15:28 Consult to Wound Care [CONS] Routine Reason for Consult: wound care appointment tomorrow to have dressings changed on lower extremities b/l due to stasis Call Completed: No Discharging clinician: Mile Avendano - Patient Status Disposition: Home, Self-Care Condition: Good Functional capacity at discharge: independent ambulation Overall status at discharge: patient is back to baseline - Discharge Instructions Instructions: Peripheral Vascular Disorders (DC) Follow Up With: Urbano Rodgers MD [Partnered Physician] - 10/22/16 1:00 pm Erwin Mercado MD [Primary Care Provider] - 10/06/16 10:40 am () Additional Instructions: The patient is to follow with nephrology at [place]- Dr. Jonas The patient can follow up with urology as needed. - Diet and Activity Diet: advance to your usual diet Interval History: Mr. Roca is a 56yo M, that presented to the ED with acute scrotal edema and pain which he stated had worsened over the past week. He stated that he suffered a fall a week prior to the edema. Patient was seen previously in the ED and placed on Bactrim on 09/25/16 of which he took 5 pills. He stated he saw Dr. Benitez of urology outpatient and had been given Lasix. He stated that the edema and pain worsened and so he returned to the ED. Patient placed on IV ceftriaxone 1 gm Q12 due to BMI and body habitus. Culture of the penis and suprapubic area were negative. Urine culture was negative. Urology consult ordered. IVP Lasix 40 mg BID was ordered. Ultrasound of the scrotum demonstrated edema bilaterally and hydroceles. Echo LVEF: 55% a Fair catheter was placed due to worsening of urinary retention that had begun prior to admission. Electrolytes including Magnesium and potassium were monitored, strict I/O, elevation of the scrotum, and tele monitoring were all part of the treatment. The patient's vitals were stable, normal WBC. Through the duration of the patient's treatment he received 5 days of Rocephin. The edema of the scrotum continued to improve. According to the patient the tenderness of the scrotum also improved drastically from admission. The patient is to follow up with urology outpatient as needed. The patient is to follow up with nephrology at [facility] Dr. Jonas. The patient at discharge denied fever, chills, chest pain , dyspnea, confusion, nausea, vomiting, abdominal pain, hematuria, dysuria, melana, hematachezia. The patient is alert and oriented x3, with full capacity. He stated a clear understanding of the treatment plan. He was advised to return to the hospital should he worsen. Hospital course: Mr. Roca is a 56 year old male - Time Spent with Patient Total time spent providing and/or coordinating discharge services: - Constitutional Vitals: Temp Pulse Resp BP Pulse Ox 97.9 F 65 18 146/87 94 10/04/16 11:03 10/04/16 11:03 10/04/16 11:03 10/04/16 11:03 10/04/16 11:03 General appearance: Present: cooperative, mild distress, A&O X 3, morbidly obese , pleasant, answers questions appropriately Exam: Gen.: Vitals noted. No acute distress. AAOx3 HEENT: PERRL, oropharynx clear, Normocephalic, atraumatic Neck: Supple. No adenopathy. Cardiac: RRR, no murmur, +S1/S2 Pulmonary: CTA bilaterally, no wheezes, rales or rhonchi, equal chest expansion Abdomen: soft, nontender, Bowel sounds noted, no guarding Back: Nontender throughout. scrotum: minimal edema, no erythema Extremities: BLE edema, nontender calf, no cyanosis or clubbing, stasis Neuro: A&Ox3, moves all extremities, no focal deficits Psych: Appropriate mood and behavior - VTE Documentation of Mechanical Device: Graduated compression elastic hosiery <Kp Ron - Last Filed: 10/04/16 18:02> Date of Encounter: 10/04/16 Date of admission: 09/28/16 22:58 Primary care physician: Erwin Mercado MD Consults: 09/30/16 15:28 Consult to Wound Care [CONS] Routine Reason for Consult: wound care appointment tomorrow to have dressings changed on lower extremities b/l due to stasis Call Completed: No Hospital course: Mr. Roca is a 56 year old male - Time Spent with Patient Total time spent providing and/or coordinating discharge services: - Constitutional Vitals: Temp Pulse Resp BP Pulse Ox 97.9 F 65 18 146/87 94 10/04/16 11:03 10/04/16 11:03 10/04/16 11:03 10/04/16 11:03 10/04/16 11:03 - Attending Attestation I examined this patient and my medical decision-making was reviewed with the Resident Physician. I agree with the documented findings, disposition and treatment plan as described except to the extent set forth below.
== END 2016-10-04 14:19 | disposition home or self-care (01) | DRG 729 ==
LOC: EMEROO 10:29 → 2ANU 10:29 → SUATTDRO 22:58
PROVIDERS: ADMIT Internal Medicine; ATTEND Internal Medicine

== ENCOUNTER 2018-08-24 15:23 | Inpatient (IN) ==
--- NOTE | 2018-08-24 16:22 | Emergency Department Note ---
Disposition Clinical Impression: Anasarca, Urinary retention, Abnormal MRI Disposition: Admitted As Inpatient Condition: Good Referrals: Erwin Mercado MD [Primary Care Provider] - Forms: ED Satisfaction Letter Time of Disposition: 21:59 General Adult HPI - General Chief complaint: ED Extremity Problem,Nontraumatic Stated complaint: Swelling All Over Time Seen by Provider: 08/24/18 16:14 Source: patient Mode of arrival: ambulatory Limitations: no limitations Nursing Notes Reviewed: Yes Vital Signs Reviewed: Yes - History of Present Illness HPI Narrative: Patient with a history of obesity, hypertension, GERD, prostate hypertrophy, urinary obstruction, anasarca; presenting to the emergency department for 3 weeks of worsening back pain associated swelling to lower extremities. Patient states that his right leg is typically worse than the left. Patient has had pain which has been investigated in regards to his back. Patient states that he has been seen by back specialist, Dr. Spaulding, and the patient may require intervention however due to the swelling patient has not his extremities patient will need to have fluid removed and be in a better state of health. The patient states that he has had associated shortness of breath is worse with exertion as well as lying down. No previous history of CHF. Patient states he has had a workup in the past and that was found to be negative. Overall the patient does have 5 out of 5 strength throughout the lower extremities. Patient states his legs just feel swollen in his associated blistering abnormal venous stasis changes have not worse. Patient will undergo further evaluation for underlying kidney and hepatic function as well as possible CHF. Patient has been on multiple steroid rounds over the last 3 weeks. Patient is on hydrochlorothiazide but does not appear to be on any other Lasix. Pain Scale: 10 - Related Data Home Medications Medication Instructions Recorded Confirmed Aspirin Enteric Coated [Aspirin EC] 81 mg PO DAILY 07/26/16 08/24/18 FLUoxetine HCl [Prozac] 80 mg PO DAILY 07/26/16 08/24/18 Lisinopril [Zestril] 40 mg PO DAILY 07/26/16 08/24/18 Omeprazole 40 mg PO DAILY 07/26/16 08/24/18 Potassium Chloride [Klor-Con 40 meq PO DAILY 07/26/16 08/24/18 Sprinkle] hydroCHLOROthiazide 12.5 mg PO DAILY 07/26/16 08/24/18 [Hydrochlorothiazide] ALPRAZolam [Xanax 0.5 MG Tablet] 0.5 mg PO BID PRN 09/28/16 08/24/18 Multivitamin [Multi-Day Vitamins] 1 tab PO DAILY 09/28/16 08/24/18 Cholecalciferol (D-3) [Vitamin D] 5,000 unit PO DAILY 08/24/18 08/24/18 Furosemide [Lasix] 40 mg PO DAILY 08/24/18 08/24/18 Allergies Allergy/AdvReac Type Severity Reaction Status Date / Time No Known Allergies Allergy Verified 09/28/16 10:31 Review of Systems: CONSTITUTIONAL: No weight loss, fever, chills, weakness or fatigue. HEENT: Eyes: No visual changes. Ears, Nose, Throat: No hearing loss, difficulty talking or unable to swallow. SKIN: No rash or itching. CARDIOVASCULAR: No chest pain, chest pressure or chest discomfort. No palpitations or edema. RESPIRATORY: Shortness of breath worsened exertion as well as lying flat GASTROINTESTINAL: No anorexia, nausea, vomiting or diarrhea. No abdominal pain or blood. GENITOURINARY: Decreased ability to urinate and increased smell to urine NEUROLOGICAL: Pain as well as paresthesias to the extremities. Patient states he has had some urinary incontinence where he feels that he has urinated a little without trying as well as an abnormal stool in which she was unable to make bathroom in time. Remote incidents not significantly worse intermittent over the last 3 weeks. No headache, dizziness, syncope, paralysis, ataxia. MUSCULOSKELETAL: Lower lumbar back pain. Past Medical History - Past Medical History Medical history: Reports: arthritis, DVT, GERD, hypertension, venous stasis Surgical history: Reports: colectomy, herniorrhaphy, orthopedic, other (Rt/Lt knee surgeries, Rt/Lt carpal tunnel surgeries, Neck surgery (C4,5,6,7)), other (Tonsillectomy) Psychiatric history: Reports: anxiety, depression - Social History Smoking Status: Former smoker Smokeless Tobacco Status: No Alcohol use: Reports: rarely Drug use: Reports: none Physical Exam General: Well appearing, nontoxic, no acute distress Head: Normocephalic Atraumatic Eyes: PERRL, EOMI ENT: Airway patent, no stridor Neck: supple, no meningismus Chest: Lungs clear to auscultation bilateral Cardiac: Regular rate and rhythm, no murmurs, rubs or gallops Abdomen: soft, nontender, nondistended; no guarding, rebound, or tenderness to percussion Musculoskeletal/extremities: Patient with significant swelling to the lower extremities causing +3 pitting edema throughout the entirety of the leg with the right leg being worse than the left with associated soft tissue changes to the skin causing some associated redness which she states has chronically been there but it is slightly worse as well as several associated blisters that have ruptured. The patient states that he can feel his legs and they feel the same bilaterally but slightly decreased he thinks secondary to the amount of pressure and pain from swelling. Patient does have 5 out of 5 strength through upper lower extremities. Patient states that sensation is intact through the groin but it feels more like a pressure which he believes is secondary to the amount of fluid load. Skin: No rash, normal skin tone. Neuro: Alert and Oriented to person, place, and time Course Course Narrative: Patient presenting for evaluation of leg swelling as well as pain. Overall swelling possibly related to previous anasarca. However the patient does have back pain with associated MRI and recent orthopedic spine evaluation. Patient has had some urinary complaints. Patient will undergo further evaluation for possible cardiac versus neurologic underlying etiology. DVT studies will be performed. Patient will likely require admission. September 2016 showed prostate hypertrophy with associated urinary retention. - Reevaluation(s) Reevaluation #1: Patient overall was unable to urinate. A Fair catheter was placed and 300 mL were obtained. - Consultations Consultation #1: Dr. Spaulding called to discuss the case as he had seen him earlier in the day. Patient has had a 20 pound weight gain over the last 10 days. Patient with overall urinary retention. I did discuss with him urinary retention being from what had been diagnosed in 2017 as prostate issues versus the abnormal findings on his recent MRI. At this time the patient will need to have continued observation with the hospital. I will discuss with hospitalist for admission. Consultation #2: Discussed with hospitalist. Patient accepted for admission for continued diuresis and observation. Vital Signs Temperature 97.5 F L 08/24/18 15:43 Pulse Rate 75 08/24/18 15:43 Respiratory Rate 18 08/24/18 15:43 Blood Pressure 168/83 08/24/18 15:43 O2 Sat by Pulse Oximetry 96 08/24/18 15:43 Temperature 97.5 F L 08/24/18 21:53 Pulse Rate 70 08/24/18 22:49 Respiratory Rate 18 08/24/18 22:49 Blood Pressure 140/70 08/24/18 22:49 O2 Sat by Pulse Oximetry 95 08/24/18 22:49 Oxygen Delivery Oxygen Delivery Room Air Medical Decision Making - Medical Records Medical records reviewed: Yes I reviewed the patient's medical records. - Lab Data Lab results reviewed: Yes I reviewed the patient's lab results. Result diagrams: 08/24/18 16:38 08/24/18 16:38 Lab Results 08/24/18 08/24/18 08/24/18 Range/Units 16:38 16:38 16:38 WBC 6.6 (4.3-11.1) K/mcL RBC 4.44 (4.19-5.50) M/mcL Hgb 12.2 L (12.9-16.9) g/dL Hct 39.8 (37.5-50.1) % MCV 89.6 (83.0-100.0) fL MCH 27.5 L (28.0-33.3) pg MCHC 30.7 L (31.6-35.5) g/dL RDW 15.9 H (11.5-14.5) % Plt Count 188 (140-400) K/mcL MPV 10.4 (9.4-12.4) fL Immature Gran % 0.8 (0-4) % Seg Neutrophils % 76.5 % Lymphocytes % 13.9 % Monocytes % 6.1 % Eosinophils % 2.4 % Basophils % 0.3 % Neutrophils # 5.0 (1.6-8.9) K/mcL Lymphocytes # 0.9 (0.6-4.6) K/mcL Monocytes # 0.4 (0.0-1.3) K/mcL Eosinophils # 0.2 (0.0-0.6) K/mcL Basophils # 0.0 (0.0-0.2) K/mcL Sodium 141 (136-145) mEq/L Potassium 3.9 (3.5-5.1) mEq/L Chloride 104 (98-107) mEq/L Carbon Dioxide 30 H (23-29) mEq/L BUN 24 H (6-20) mg/dL Creatinine 0.68 L (0.70-1.30) mg/dL Est GFR ( Amer) > 60 (> 60) Est GFR (Non-Af Amer) > 60 (> 60) BUN/Creatinine Ratio 35 H (6-26) Glucose 109 H (70-105) mg/dL Calculated Osmolality 297 (280-300) Calcium 8.9 (8.6-10.3) mg/dL Total Bilirubin 0.5 (0.3-1.0) mg/dL Direct Bilirubin 0.1 (0.0-0.2) mg/dL Indirect Bilirubin 0.4 (0.0-1.2) mg/dL AST 16 (13-39) Units/L ALT 18 (7-52) Units/L Alkaline Phosphatase 53 (34-104) Units/L Troponin I < 0.03 (< 0.04) ng/mL B-Natriuretic Peptide 18 (Less than 100) pg/mL Serum Total Protein 6.2 L (6.4-8.9) g/dL Albumin 3.6 (3.5-5.7) g/dL Globulin 2.6 (2.4-3.5) g/dL Albumin/Globulin Ratio 1.4 (1.1-2.2) Urine Color (Yellow) Urine Clarity (Clear) Urine pH (5.0-8.0) pH Units Ur Specific [place] (1.010-1.025) Urine Protein (Neg-Trace) mg/dL Urine Glucose (UA) (Normal) mg/dL Urine Ketones (Negative) mg/dL Urine Blood (Negative) Urine Nitrite (Negative) Urine Bilirubin (Negative) Urine Urobilinogen (Normal) mg/dL Ur Leukocyte Esterase (Negative) Urine Microscopic RBC (0-3) per hpf Urine Microscopic WBC (0-3) per hpf Ur Squamous Epith Cells (None-Few) per lpf Urine Bacteria (None-Few) per hpf Hyaline Casts (None-Few) per lpf Ur Culture Indicated? (NO) 08/24/18 Range/Units 20:31 WBC (4.3-11.1) K/mcL RBC (4.19-5.50) M/mcL Hgb (12.9-16.9) g/dL Hct (37.5-50.1) % MCV (83.0-100.0) fL MCH (28.0-33.3) pg MCHC (31.6-35.5) g/dL RDW (11.5-14.5) % Plt Count (140-400) K/mcL MPV (9.4-12.4) fL Immature Gran % (0-4) % Seg Neutrophils % % Lymphocytes % % Monocytes % % Eosinophils % % Basophils % % Neutrophils # (1.6-8.9) K/mcL Lymphocytes # (0.6-4.6) K/mcL Monocytes # (0.0-1.3) K/mcL Eosinophils # (0.0-0.6) K/mcL Basophils # (0.0-0.2) K/mcL Sodium (136-145) mEq/L Potassium (3.5-5.1) mEq/L Chloride (98-107) mEq/L Carbon Dioxide (23-29) mEq/L BUN (6-20) mg/dL Creatinine (0.70-1.30) mg/dL Est GFR ( Amer) (> 60) Est GFR (Non-Af Amer) (> 60) BUN/Creatinine Ratio (6-26) Glucose (70-105) mg/dL Calculated Osmolality (280-300) Calcium (8.6-10.3) mg/dL Total Bilirubin (0.3-1.0) mg/dL Direct Bilirubin (0.0-0.2) mg/dL Indirect Bilirubin (0.0-1.2) mg/dL AST (13-39) Units/L ALT (7-52) Units/L Alkaline Phosphatase (34-104) Units/L Troponin I (< 0.04) ng/mL B-Natriuretic Peptide (Less than 100) pg/mL Serum Total Protein (6.4-8.9) g/dL Albumin (3.5-5.7) g/dL Globulin (2.4-3.5) g/dL Albumin/Globulin Ratio (1.1-2.2) Urine Color Yellow (Yellow) Urine Clarity Clear (Clear) Urine pH 6.0 (5.0-8.0) pH Units Ur Specific [place] 1.025 (1.010-1.025) Urine Protein Trace (Neg-Trace) mg/dL Urine Glucose (UA) Normal (Normal) mg/dL Urine Ketones Trace H (Negative) mg/dL Urine Blood Trace-intact H (Negative) Urine Nitrite Negative (Negative) Urine Bilirubin Small H (Negative) Urine Urobilinogen Normal (Normal) mg/dL Ur Leukocyte Esterase Negative (Negative) Urine Microscopic RBC 5-15 H (0-3) per hpf Urine Microscopic WBC 0-3 (0-3) per hpf Ur Squamous Epith Cells Many H (None-Few) per lpf Urine Bacteria None Seen (None-Few) per hpf Hyaline Casts None Seen (None-Few) per lpf Ur Culture Indicated? NO (NO) Attestation Statement - Attestation Attestation: The documentation above is of Dr. Jonathan mann. Resident did not document on or see this patient.
[2018-08-24 17:08] LABS: Basophils % 0.3 %; Eosinophils # 0.2 K/mcL (0.0-0.6); Eosinophils % 2.4 %; Hematocrit 39.8 % (37.5-50.1); Hemoglobin 12.2 g/dL (12.9-16.9); Immature Granulocytes % 0.8 % (0-4); Lymphocytes # 0.9 K/mcL (0.6-4.6); Lymphocytes % 13.9 %; Mean Corpuscular HGB Conc 30.7 g/dL (31.6-35.5); Mean Corpuscular Hemoglobin 27.5 pg (28.0-33.3); Mean Corpuscular Volume 89.6 fL (83.0-100.0); Mean Platelet Volume 10.4 fL (9.4-12.4); Monocytes # 0.4 K/mcL (0.0-1.3); Monocytes % 6.1 %; Platelet Count 188 K/mcL (140-400); Red Blood Count 4.44 M/mcL (4.19-5.50); Red Cell Distribution Width 15.9 % (11.5-14.5); Segmented Neutrophils % 76.5 %; White Blood Count 6.6 K/mcL (4.3-11.1)
[2018-08-24 17:27] LABS: Alanine Aminotransferase 18 Units/L (7-52); Albumin 3.6 g/dL (3.5-5.7); Albumin/Globulin Ratio 1.4 (1.1-2.2); Alkaline Phosphatase 53 Units/L (34-104); Aspartate Amino Transferase 16 Units/L (13-39); BUN/Creatinine Ratio 35 (6-26); Bilirubin,Direct 0.1 mg/dL (0.0-0.2); Bilirubin,Indirect 0.4 mg/dL (0.0-1.2); Bilirubin,Total 0.5 mg/dL (0.3-1.0); Blood Urea Nitrogen 24 mg/dL (6-20); Calcium 8.9 mg/dL (8.6-10.3); Carbon Dioxide 30 mEq/L (23-29); Chloride 104 mEq/L (98-107); Globulin 2.6 g/dL (2.4-3.5); Glucose 109 mg/dL (70-105); Osmolality,Calculated 297 (280-300); Potassium 3.9 mEq/L (3.5-5.1); Sodium 141 mEq/L (136-145); Total Protein 6.2 g/dL (6.4-8.9); Troponin I < 0.03 ng/mL (< 0.04); eGFR For African Americans > 60 (> 60); eGFR For Non-African Americans > 60 (> 60)
[2018-08-24 20:45] LABS: Bilirubin,Urine Small (Negative); Blood,Urine Trace-intact (Negative); Clarity,Urine Clear (Clear); Color,Urine Yellow (Yellow); Glucose,Urine (UA) Normal (Normal); Ketones,Urine Trace mg/dL (Negative); Leukocyte Esterase,Urine Negative (Negative); Nitrite,Urine Negative (Negative); Protein,Urine Trace mg/dL (Neg-Trace); Specific Gravity,Urine 1.025 (1.010-1.025); Urobilinogen,Urine Normal (Normal)
[2018-08-24 20:47] LABS: Bacteria,Urine None Seen per hpf (None-Few); Hyaline Casts,Urine None Seen per lpf (None-Few); Squamous Epithelial Cell,Urine Many per lpf (None-Few); WBC,Urine 0-3 per hpf (0-3)
[2018-08-24] MEDS ORDERED: Furosemide 40 MG/4 ML VIAL IVP ONE (22:26)
[2018-08-25] MEDS ORDERED: Naloxone 0.4 MG/ML INJ IVP PRN (04:59)
--- NOTE | 2018-08-25 05:05 | Internal Med History&Physical ---
Date of Encounter: 08/25/18 Time of Encounter: 04:05 Internal Medicine - H&P: HPI Chief complaint: Lower extremity edema Admitted From: Emergency Dept Plans for Post Hospital Care: Home History of present illness: Mr. Roca is a 57 year old male Patient presented to the emergency room with lower extremity swelling for 2-3 weeks. Been progressively worsening, he was seen outpatient for this and was told to take Lasix. Patient has not been taking this however because he has difficulty getting up and going to the bathroom. Patient is morbidly obese and also has history of back problems. He follows with Dr. 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 Disc and osteophytes as well as facet and ligamentum flavum hypertrophy contribute to further stenosis of the thecal sac and narrowing of the neural foramina as discussed above. There is disc protrusion and osteophyte as well as facet and ligamentum flavum hypertrophy at T11-T12 with narrowing of the neural foramina at that level. The thecal sac is not fully evaluated. A dedicated MRI of the thoracic spine could be considered if indicated. He came to the emergency room for further evaluation. In the emergency room patient's initial vital signs are within normal limits CBC and BMP both within normal limits Initial troponin undetectable Liver function tests within normal limits Urinalysis negative for infection Chest x-ray showed no evidence of acute cardiopulmonary process. There were findings suggestive of COPD. Patient had difficulty urinating and a Fair catheter was placed without difficulty. He was given 40 mg of Lasix and had good response. Dr. Spaulding was contacted and will see the patient in the morning. Recommended admit to hospitalist service with spine surgery consultation. Upon my evaluation, patient is resting comfortably muscle bed in no acute distress. He denies chest pain, abdominal pain, nausea, vomiting, diarrhea and constipation. He has had at least 3 L of urine since initiation of the Lasix. Patient denies history of congestive heart failure. He is a DNR/DNI. Past Med Surg Social Fam HX - Past Medical History Medical history: arthritis, DVT, GERD, hypertension, venous stasis Psychiatric history: anxiety, depression - Past Surgical History Surgical History: colectomy, herniorrhaphy, orthopedic, other (Rt/Lt knee surgeries, Rt/Lt carpal tunnel surgeries, Neck surgery (C4,5,6,7)), other (Tonsillectomy) Additional surgical history: bilateral knee replacement, carpal tunnel release b/l, umbilical hernia repair - Social History Smoking Status: Former smoker Smokeless Tobacco Status: No Alcohol use: rarely Drug use: none - Family History Father Family Member Ethnicity: Non- Living Status: Hx Family Cardiac Disorders: Yes ([place], HD) Hx Family Cancer: Yes (Prostate) Mother Family Member Ethnicity: Non- Living Status: Still Living Hx Family Cardiac Disorders: Yes ([place]) Hx Family Endocrine Disorder: Yes (DM) Hx Family Neurologic Disorders: Yes (Dementia) Sister Family Member Ethnicity: Non- Living Status: Hx Family Cardiac Disorders: Yes ([place]) Internal Medicine - H&P: Meds Aspirin Enteric Coated [Aspirin EC] 81 mg PO DAILY 07/26/16 [History] FLUoxetine HCl [Prozac] 80 mg PO DAILY 07/26/16 [History] Lisinopril [Zestril] 40 mg PO DAILY 07/26/16 [History] Omeprazole 40 mg PO DAILY 07/26/16 [History] Potassium Chloride [Klor-Con Sprinkle] 40 meq PO DAILY 07/26/16 [History] hydroCHLOROthiazide [Hydrochlorothiazide] 12.5 mg PO DAILY 07/26/16 [History] ALPRAZolam [Xanax 0.5 MG Tablet] 0.5 mg PO BID PRN 09/28/16 [History] Multivitamin [Multi-Day Vitamins] 1 tab PO DAILY 09/28/16 [History] Cholecalciferol (D-3) [Vitamin D] 5,000 unit PO DAILY 08/24/18 [History] Furosemide [Lasix] 40 mg PO DAILY 08/24/18 [History] Allergy/AdvReac Type Severity Reaction Status Date / Time No Known Allergies Allergy Verified 09/28/16 10:31 All Systems PM: A 10-system review of systems was performed and is negative for pertinent findings except as documented above in the HPI. - Constitutional Vitals: Temp Pulse Resp BP Pulse Ox 97.8 F 75 18 155/81 95 08/25/18 04:07 08/25/18 04:07 08/25/18 04:07 08/25/18 04:07 08/25/18 04:07 General appearance: Present: cooperative, A&O X 3, pleasant, no acute distress, answers questions appropriately Exam: - - Head Head exam: Present: normal inspection - Eye Eye exam: Present: EOMI, normal appearance - Respiratory Respiratory exam: Present: wheezes. Absent: CTAB, rales, respiratory distress, rhonchi - Cardiovascular Cardiovascular exam: Present: RRR. Absent: diastolic murmur, systolic murmur - GI/Abdominal GI/Abdominal exam: Present: normal bowel sounds, soft. Absent: tenderness - Extremities Exam Extremities exam: Present: pedal edema, tenderness, warm, radial pulses palpable and symmetrical Additional comments: Severe lower extremity edema, 3+ pitting to knee bilaterally. - Neurological Exam Neurological exam: Present: no focal deficits, strengths equal and symetr throu ghout. Absent: motor sensory deficit, facial droop, speech deficit - Skin Skin exam: Present: dry, erythema, warm Additional comments: Lower extremity skin erythema bilaterally to knee, superficial skin breakdown with weeping of skin, clear fluid Internal Med - H&P Results - Labs CBC & Chem 7: 08/24/18 16:38 08/24/18 16:38 Labs: Short CBC 08/24/18 Range/Units 16:38 WBC 6.6 (4.3-11.1) K/mcL Hgb 12.2 L (12.9-16.9) g/dL Hct 39.8 (37.5-50.1) % Plt Count 188 (140-400) K/mcL Neutrophils # 5.0 (1.6-8.9) K/mcL BMP 08/24/18 16:38 Sodium 141 Potassium 3.9 Chloride 104 Carbon Dioxide 30 H BUN 24 H Creatinine 0.68 L Glucose 109 H Calcium 8.9 Cardiac Enzymes 08/24/18 Range/Units 16:38 Troponin I < 0.03 (< 0.04) ng/mL Liver Function 08/24/18 Range/Units 16:38 Total Bilirubin 0.5 (0.3-1.0) mg/dL Direct Bilirubin 0.1 (0.0-0.2) mg/dL AST 16 (13-39) Units/L ALT 18 (7-52) Units/L Alkaline Phosphatase 53 (34-104) Units/L Albumin 3.6 (3.5-5.7) g/dL Urine 08/24/18 Range/Units 20:31 Urine Color Yellow (Yellow) Urine Clarity Clear (Clear) Urine pH 6.0 (5.0-8.0) pH Units Ur Specific [place] 1.025 (1.010-1.025) Urine Protein Trace (Neg-Trace) mg/dL Urine Glucose (UA) Normal (Normal) mg/dL - Impressions ITS Impressions Chest X-Ray 08/24/18 16:23 IMPRESSION: No radiographic evidence of acute cardiopulmonary process. Unchanged enlargement of the cardiomediastinal silhouette. Findings suggestive of COPD. D/ / 08/24/2018 16:55:39 Qasim Jaime MD / rosio Interpreting Provider: Qasim Jaime MD - Assessment and Plan (1) Anasarca Current Visit: Yes Status: Acute Assessment and plan: 3+ pitting edema bilaterally in the lower extremities. Patient has erythema and venous changes as well. Superficial wounds to both legs. He has had good response to the Lasix thus far. Continue IV Lasix Strict I's and O's Daily weights Echocardiogram in the morning (2) Urinary retention Current Visit: Yes Status: Acute Assessment and plan: Fair catheter inserted without difficulty. Patient denies history of prostate issues. Has required Fair catheterization in the past, in 2017 when he had scrotal edema. He was put on Lasix at that time. 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 Disc and osteophytes as well as facet and ligamentum flavum hypertrophy contribute to further stenosis of the thecal sac and narrowing of the neural foramina as discussed above. There is disc protrusion and osteophyte as well as facet and ligamentum flavum hypertrophy at T11-T12 with narrowing of the neural foramina at that level. The thecal sac is not fully evaluated. A dedicated MRI of the thoracic spine could be considered if indicated. Dr. Spaulding notified, follow-up recommendations (4) Morbid obesity Current Visit: No Status: Chronic Assessment and plan: BMI 79.6. Strict I's and O's Daily weights (5) DVT prophylaxis Current Visit: No Status: Acute Assessment and plan: Heparin subcutaneous - Time Spent With Patient Total time spent is greater than 50% in coordination of care (as documented) at patient's floor/unit and/or counseling patient: Greater than 35 minutes
[2018-08-25] MEDS: *HR* Heparin 5,000 UNIT/ML VIAL SQ SCH ×3 (05:44→20:33)
[2018-08-25] MEDS: Acetaminophen 325 MG TABLET PO PRN (05:44)
[2018-08-25 07:11] LABS: Hematocrit 40.3 % (37.5-50.1); Hemoglobin 12.5 g/dL (12.9-16.9); Mean Corpuscular Hemoglobin 27.5 pg (28.0-33.3); Mean Corpuscular Volume 88.8 fL (83.0-100.0); Mean Platelet Volume 10.2 fL (9.4-12.4); Platelet Count 199 K/mcL (140-400); Red Blood Count 4.54 M/mcL (4.19-5.50); Red Cell Distribution Width 16.2 % (11.5-14.5); White Blood Count 5.6 K/mcL (4.3-11.1)
[2018-08-25 07:36] LABS: BUN/Creatinine Ratio 28 (6-26); Blood Urea Nitrogen 19 mg/dL (6-20); Calcium 8.8 mg/dL (8.6-10.3); Carbon Dioxide 30 mEq/L (23-29); Chloride 101 mEq/L (98-107); Glucose 159 mg/dL (70-105); Osmolality,Calculated 300 (280-300); Sodium 142 mEq/L (136-145); eGFR For African Americans > 60 (> 60); eGFR For Non-African Americans > 60 (> 60)
[2018-08-25] MEDS ORDERED: Furosemide 40 MG/4 ML VIAL IVP SCH (09:00)
--- NOTE | 2018-08-25 13:02 | Event Note ---
Date of Encounter: 08/25/18 Time of Encounter: 12:56 Patient examined and seen. Reviewed the previous echo done in 2018 with EF 55- 60%, mild to moderate dilated left ventricle, mild LVEDD. Patient has lower extremity edema for last 3 weeks getting progressively worse. Patient also has chronic back pain that has been getting worse recently therefore had MRI done by her primary care provider and referred to a spine surgeon Dr. Spaulding. Patient states that he was seen by Dr. Spaulding yesterday in his office and he decided to admit patient to take extra fluid off from the body and around the lower back that might be contributing for worsening of lower back pain and lower extremity numbness. Patient is states that initially he started to build up fluid in the lower extremity and eventually numbness noticed. He denies bladder or bowel incontinence. Patient has normal BNP. +3 bilateral lower extremity edema with diffuse weeping skin. Swelling extended to high and lower abdomen. Lung lightheadedness sounds but no crackles appreciated. Will repeat echocardiogram. Liver function tests normal, albumin normal. Continue IV diuresis, daily weight, a strict I&O's. Will consult cardiology if needed.
[2018-08-25] MEDS ORDERED: Perflutren Lipid Microsphere 1.3 ML in 0.9 % Sodium Chloride 8.7 ML IVP ONE (15:12)
[2018-08-25] MEDS: Furosemide 40 MG/4 ML VIAL IVP SCH (16:21)
[2018-08-25] MEDS: ALPRAZolam 0.5 MG TABLET PO PRN (20:33)
[2018-08-26 02:50] LABS: BUN/Creatinine Ratio 23 (6-26); Blood Urea Nitrogen 19 mg/dL (6-20); Calcium 8.8 mg/dL (8.6-10.3); Carbon Dioxide 32 mEq/L (23-29); Chloride 98 mEq/L (98-107); Glucose 152 mg/dL (70-105); Osmolality,Calculated 291 (280-300); Potassium 3.8 mEq/L (3.5-5.1); Sodium 138 mEq/L (136-145); eGFR For African Americans > 60 (> 60); eGFR For Non-African Americans > 60 (> 60)
[2018-08-26] MEDS: *HR* Heparin 5,000 UNIT/ML VIAL SQ SCH ×3 (06:14→23:47)
[2018-08-26] MEDS: Aspirin Enteric Coated 81 MG Tablet PO SCH (07:25)
[2018-08-26] MEDS: FLUoxetine 20 MG CAPSULE PO SCH (07:25)
[2018-08-26] MEDS: Acetaminophen 325 MG TABLET PO PRN ×2 (07:25→20:44)
[2018-08-26] MEDS: Furosemide 40 MG/4 ML VIAL IVP SCH ×2 (07:26→18:23)
--- NOTE | 2018-08-26 11:31 | Internal Med Progress Note ---
Hospitalist Progress Note - Encounter Date of Encounter: 08/26/18 Time of Encounter: 11:38 - Subjective Interval History: Acute event overnight. Making good urine with almost 1 L negative balance overnight. Review the lab. Reviewed the vitals with slight elevated blood pressure. Patient denies fever chills nausea vomiting headache chest pain abdominal pain diarrhea. - Exam Vitals: Temp Pulse Resp BP Pulse Ox 98.0 F 68 16 155/80 94 08/26/18 07:58 08/26/18 07:58 08/26/18 07:58 08/26/18 07:58 08/26/18 03:46 Exam: General appearance: No acute distress, A&O X 3. Morbidly obese Head exam: Atraumatic Eye exam: EOMI, PERRLA ENT exam: Moist oral mucosa Neck nontender, supple Respiratory exam: Haroldo breath sounds bilaterally Cardiovascular exam: Regular rate and rhythm, no systolic murmur Abdominal exam: Soft, nontender, nondistended, positive bowel sounds Extremities exam: No calf tenderness, +2/ 3 pedal edema Present: Skin-no rash, warm, dry, intact Neurological exam: Alert, awake, oriented 3, CN II-XII intact, no focal deficits. No facial droop. Normal speech. - - Assessment and Plan (1) Anasarca Current Visit: Yes Status: Acute Assessment and Plan: 3+ pitting edema bilaterally in the lower extremities. Patient has erythema and venous changes as well. Superficial wounds to both legs. Consulted wound care Continue IV Lasix 40 mg twice a day. Strict I's and O's Daily weights-lost almost 3 kg since admission Bilateral lower extremity Doppler ultrasound normal Patient is still has significant swelling-May need few days of IV diuresis with close monitoring previous echo done in 2018 with EF 55-60%, mild to moderate dilated left ventricle, mild LVEDD. Echocardiogram -still pending reports (2) Morbid obesity Current Visit: No Status: Chronic Assessment and Plan: BMI 79.6.. Consulted multiple effect evaporator operator for diet education. Life style modification. (3) Urinary retention Current Visit: Yes Status: Acute Assessment and Plan: Fair catheter inserted without difficulty. Patient denies history of prostate issues. Has required Fair catheterization in the past, in 2017 when he had scrotal edema. He was put on Lasix at that time. Continue Fair catheter-or a strict I&O's purpose. Will consider removing soon with void trial and he failed then will consult urology Follow-up spine surgery recommendations (4) Abnormal MRI Current Visit: Yes Status: Acute Assessment and Plan: Patient has chronic low back pain with recent lower extremity numbness both side started after getting fluid overloaded. 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 Disc and osteophytes as well as facet and ligamentum flavum hypertrophy contribute to further stenosis of the thecal sac and narrowing of the neural foramina as discussed above. There is disc protrusion and osteophyte as well as facet and ligamentum flavum hypertrophy at T11-T12 with narrowing of the neural foramina at that level. The thecal sac is not fully evaluated. A dedicated MRI of the thoracic spine could be considered if indicated. Dr. Spaulding notified. Patient states that he was seen by Dr. Spaulding in his office and he decided to admit patient to take extra fluid off from the body and around the lower back that might be contributing for worsening of lower back pain and lower extremity numbness. Patient is states that initially he started to build up fluid in the lower extremity and eventually numbness noticed. He denies bladder or bowel incontinence. (5) DVT prophylaxis Current Visit: No Status: Acute Assessment and Plan: Heparin subcutaneous - Time Spent with Patient Total time spent is greater than 50% in coordination of care (as documented) at patient's floor/unit and/or counseling patient: 25 - 35 minutes Plan of Care Discussed with: patient Internal Medicine: Result - Labs CBC & Chem 7: 08/25/18 06:33 08/26/18 01:53 Labs: BMP 08/26/18 01:53 Sodium 138 Potassium 3.8 Chloride 98 Carbon Dioxide 32 H BUN 19 Creatinine 0.83 Glucose 152 H Calcium 8.8 - Impressions Impressions Chest X-Ray 08/24/18 16:23 IMPRESSION: 1. No radiographic evidence of acute cardiopulmonary process. 2. Unchanged enlargement of the cardiomediastinal silhouette. 3. Findings suggestive of COPD. D/ / 08/24/2018 16:55:39 Qasim Jaime MD / rosio Interpreting Provider: Qasim Jaime MD Consult Discharge Plan - Plan Referrals: Erwin Mercado MD [Primary Care Provider] -
[2018-08-26] MEDS: ALPRAZolam 0.5 MG TABLET PO PRN (23:57)
[2018-08-27 04:25] LABS: BUN/Creatinine Ratio 24 (6-26); Blood Urea Nitrogen 20 mg/dL (6-20); Calcium 9.1 mg/dL (8.6-10.3); Carbon Dioxide 32 mEq/L (23-29); Chloride 95 mEq/L (98-107); Glucose 146 mg/dL (70-105); Osmolality,Calculated 291 (280-300); Potassium 3.9 mEq/L (3.5-5.1); Sodium 138 mEq/L (136-145); eGFR For African Americans > 60 (> 60); eGFR For Non-African Americans > 60 (> 60)
[2018-08-27] MEDS: *HR* Heparin 5,000 UNIT/ML VIAL SQ SCH ×3 (06:05→22:03)
[2018-08-27] MEDS: Furosemide 40 MG/4 ML VIAL IVP SCH ×2 (08:37→18:46)
[2018-08-27] MEDS: FLUoxetine 20 MG CAPSULE PO SCH (08:38)
[2018-08-27] MEDS: Aspirin Enteric Coated 81 MG Tablet PO SCH ×2 (08:38→08:39)
[2018-08-27] MEDS: Multivit/Ca/Min/Fe/FA 1 TAB TABLET PO SCH (08:41)
--- NOTE | 2018-08-27 10:40 | Internal Med Progress Note ---
Hospitalist Progress Note - Encounter Date of Encounter: 08/27/18 Time of Encounter: 10:37 - Subjective Interval History: No acute event overnight. Decreasing swelling. Good urine output almost 5 L last 24-hour. Review the lab and vitals. Patient denies fever chills nausea vomiting headache dizziness chest pain shortness of breath abdominal pain diarrhea - Exam Vitals: Temp Pulse Resp BP Pulse Ox 97.9 F 72 16 145/72 95 08/27/18 07:17 08/27/18 07:17 08/27/18 07:17 08/27/18 07:17 08/27/18 07:17 Exam: General appearance: No acute distress, A&O X 3. Morbidly obese Eye exam: EOMI, PERRLA ENT exam: Moist oral mucosa Neck nontender, supple Respiratory exam: Diminished breath sounds bilaterally Cardiovascular exam: Regular rate and rhythm, no systolic murmur Abdominal exam: Soft, nontender, nondistended, positive bowel sounds Extremities exam: No calf tenderness, +2 pedal edema Present: Skin-no rash, warm, dry, intact Neurological exam: Alert, awake, oriented 3, CN II-XII intact, no focal deficits. No facial droop. Normal speech. - - Assessment and Plan (1) Anasarca Current Visit: Yes Status: Acute Assessment and Plan: Superficial wounds to both legs most likely due to swelling. Consulted wound care Continue IV Lasix 40 mg twice a day. Strict I's and O's Daily weights-lost almost 4 kg since admission Bilateral lower extremity Doppler ultrasound normal Patient is still has significant swelling-May need few days of IV diuresis with close monitoring previous echo done in 2018 with EF 55-60%, mild to moderate dilated left ventricle, mild LVEDD. Echocardiogram -during this admission Impressions: LVEF 65-70%. Mild concentric left ventricular hypertrophy. Mild left ventricular diastolic dysfunction. Normal right ventricular structure and function. Mild tricuspid regurgitation. No pulmonary hypertension. Left Ventricular Wall Motion: Rest Echo Findings All wall segments showed normal motion. (2) Morbid obesity Current Visit: No Status: Chronic Assessment and Plan: Consulted bottle house pumper for diet education. Life style modification. (3) Urinary retention Current Visit: Yes Status: Acute Assessment and Plan: Fair catheter inserted without difficulty. Patient denies history of prostate issues. Has required Fair catheterization in the past, in 2017 when he had scrotal edema. He was put on Lasix at that time. Continue Fair catheterfor a strict I&O's purpose. Will consider removing soon with void trial and if he failed then will consult urology (4) Abnormal MRI Current Visit: Yes Status: Acute Assessment and Plan: Patient has chronic low back pain with recent lower extremity numbness both side started after getting fluid overloaded. 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 Disc and osteophytes as well as facet and ligamentum flavum hypertrophy contribute to further stenosis of the thecal sac and narrowing of the neural foramina as discussed above. There is disc protrusion and osteophyte as well as facet and ligamentum flavum hypertrophy at T11-T12 with narrowing of the neural foramina at that level. The thecal sac is not fully evaluated. A dedicated MRI of the thoracic spine could be considered if indicated. Dr. Spaulding notified. Patient states that he was seen by Dr. Spaulding in his office and he decided to admit patient to take extra fluid off from the body and around the lower back that might be contributing for worsening of lower back pain and lower extremity numbness. Patient is states that initially he started to build up fluid in the lower extremity and eventually numbness noticed. He denies bladder or bowel incontinence. (5) DVT prophylaxis Current Visit: No Status: Acute Assessment and Plan: Heparin subcutaneous (6) Generalized weakness Current Visit: Yes Status: Acute Assessment and Plan: PTOT on board. Patient was able to go to bathroom with some assistance. property worker on board for discharge plan - Time Spent with Patient Total time spent is greater than 50% in coordination of care (as documented) at patient's floor/unit and/or counseling patient: 25 - 35 minutes Plan of Care Discussed with: patient Internal Medicine: Result - Labs CBC & Chem 7: 08/25/18 06:33 08/27/18 03:23 Labs: BMP 08/27/18 03:23 Sodium 138 Potassium 3.9 Chloride 95 L Carbon Dioxide 32 H BUN 20 Creatinine 0.85 Glucose 146 H Calcium 9.1 - Impressions Impressions Echocardiogram 08/25/18 05:09 Impressions: LVEF 65-70%. Mild concentric left ventricular hypertrophy. Mild left ventricular diastolic dysfunction. Normal right ventricular structure and function. Mild tricuspid regurgitation. No pulmonary hypertension. Left Ventricular Wall Motion: Rest Echo Findings All wall segments showed normal motion. Findings: Study Quality * Technically adequate exam. ECG Findings * Sinus rhythm with BBB. Left Ventricle * LVEF 65-70%. * Normal LV chamber size and systolic function. * Mild concentric left ventricular hypertrophy. * Mild left ventricular diastolic dysfunction. * Definity echo contrast was used. * Atypical septal motion consistent with bundle branch block. Right Ventricle * Normal right ventricular structure and function. Left Atrium * Normal left atrial size. Right Atrium * Normal right atrial size. Interatrial Septum * Interatrial septum not well evaluated. Aortic Valve * Aortic valve not well visualized. * No aortic stenosis. * No aortic regurgitation. Mitral Valve * Normal mitral valve structure. * No mitral stenosis. * Trace mitral regurgitation. Tricuspid Valve * Normal tricuspid valve structure. * No tricuspid stenosis. * Mild tricuspid regurgitation. * Estimated RVSP is 27 mmHg. * Estimated RA pressure is 3 mmHg. * No pulmonary hypertension. Pulmonic Valve * Pulmonic valve is not well visualized. * No pulmonic stenosis. * Trace pulmonic regurgitation. Aorta * Normally sized aortic root. Pericardium * The pericardium appears normal. IVC * The IVC is not dilated. * > 50% respiratory change Consult Discharge Plan - Plan Referrals: Erwin Mercado MD [Primary Care Provider] -
[2018-08-27] MEDS: Acetaminophen 325 MG TABLET PO PRN ×2 (15:22→22:03)
[2018-08-27] MEDS: ALPRAZolam 0.5 MG TABLET PO PRN (22:03)
[2018-08-28] MEDS: *HR* Heparin 5,000 UNIT/ML VIAL SQ SCH ×3 (05:02→22:25)
--- NOTE | 2018-08-28 08:24 | Spine Progress Note ---
Date of Encounter: 08/28/18 Time of Encounter: 08:20 - Assessment and Plan (1) Anasarca Current Visit: Yes Status: Acute On exam he is morbidly obese. Afebrile vital signs stable. He is morbidly obese. He said significant diuresis during his hospital stay. He is grossly neurovascularly intact with regard to his bilateral lower extremities. He has s ome decreased sensation to light touch in the feet bilaterally. He has chronic venous stasis changes in the lower extremities and some healing ulcer lesions with scabbing. His hips move symmetrically. He has no clonus. MRI of the lumbar spine reveals multilevel degenerative changes. This component of congenital stenosis throughout the lumbar spine but his stenosis at multiple levels is mostly foraminal. Impression: 1) anasarca 2) lumbar foraminal stenosis 3) numbness and lower extremities Plan: We will continue his diuresis per the hospitalist service. He already states he is feeling symptomatically improved with regard to his lower extremity swelling and resolution of shortness of breath. We will workup his numbness and lower extremities on the outpatient basis with EMG which is already scheduled. He will follow-up in my office as scheduled. I see no role for acute surgical intervention. Subjective Principal diagnosis: Swelling in legs, numbness in feet, fluid retention Interval history: Patient known to my practice as of Tuesday. He was seen in the office with complaints of shortness of breath, a 20 pound weight gain in the past 10 days, numbness in his feet, and swelling in the lower extremities including some blistering. He had a similar episode in the summer 2017 for which he required diuresis. At that time he was informed he had some prostate difficulties as well as. He admitted that he had not taken much of his Lasix because he had difficulty making it to the bathroom when he uses the medication. He was sent to the emergency department with concerns of fluid overload. He was admitted by the hospitalist service for management of this condition. He currently denies back pain but continues with numbness in the feet. He has arguments set up for an EMG of his lower extremities on an outpatient basis to elucidate neuropathy versus lumbar radiculopathy. He denies perineal numbness, weakness in the lower extremities, fevers or chills. He also stated that he knows when he needs to initiate micturition or defecation. Objective Vital signs: Vital Signs Temp Pulse Resp BP Pulse Ox 08/28/18 07:05 97.8 F 72 16 142/93 93 08/28/18 05:45 98.6 F 72 15 133/80 94 08/28/18 01:23 98.1 F 76 16 128/80 95 08/27/18 19:16 98.3 F 75 17 119/73 96 08/27/18 15:38 98.3 F 71 16 131/70 98 08/27/18 11:43 97.3 F L 70 16 145/78 94 Intake and Output 08/27/18 08/28/18 08/28/18 23:59 07:59 15:59 Intake Total 340 / 900 270 / 270 Output Total 2400 / 5350 1000 / 1000 Balance -2060 / -4450 -730 / -730 Intake: Oral 340 / 900 270 / 270 Output: Urine 2000 / 4200 Catheter 400 / 1150 1000 / 1000 Other: Meal Dinner Percent of Meal Consumed 100% Weight 193.6 kg Patient Weight 08/28/18 23:59 Weight 193.6 kg - Labs CBC & BMP: 08/25/18 06:33 08/27/18 03:23 Labs: Abnormal lab results Hgb 12.5 g/dL (12.9-16.9) L 08/25/18 06:33 MCH 27.5 pg (28.0-33.3) L 08/25/18 06:33 MCHC 31.0 g/dL (31.6-35.5) L 08/25/18 06:33 RDW 16.2 % (11.5-14.5) H 08/25/18 06:33 Chloride 95 mEq/L (98-107) L 08/27/18 03:23 Carbon Dioxide 32 mEq/L (23-29) H 08/27/18 03:23 BUN 24 mg/dL (6-20) H 08/24/18 16:38 0.69 mg/dL (0.70-1.30) L 08/25/18 06:33 28 (6-26) H 08/25/18 06:33 Glucose 146 mg/dL (70-105) H 08/27/18 03:23 6.2 g/dL (6.4-8.9) L 08/24/18 16:38 Trace mg/dL (Negative) H 08/24/18 20:31 Trace-intact (Negative) H 08/24/18 20:31 Small (Negative) H 08/24/18 20:31 5-15 per hpf (0-3) H 08/24/18 20:31 Ur Squamous Epith Cells Many per lpf (None-Few) H 08/24/18 20:31 Consult Discharge Plan - Plan Referrals: Erwin Mercado MD [Primary Care Provider] -
[2018-08-28] MEDS: FLUoxetine 20 MG CAPSULE PO SCH (09:10)
[2018-08-28] MEDS: Furosemide 40 MG/4 ML VIAL IVP SCH ×2 (09:10→18:04)
[2018-08-28] MEDS: Aspirin Enteric Coated 81 MG Tablet PO SCH ×2 (09:10→09:11)
[2018-08-28] MEDS: Multivit/Ca/Min/Fe/FA 1 TAB TABLET PO SCH (09:11)
[2018-08-28] MEDS: Acetaminophen 325 MG TABLET PO PRN ×2 (09:29→20:13)
[2018-08-28 09:32] LABS: BUN/Creatinine Ratio 31 (6-26); Blood Urea Nitrogen 25 mg/dL (6-20); Carbon Dioxide 33 mEq/L (23-29); Chloride 95 mEq/L (98-107); Glucose 167 mg/dL (70-105); Osmolality,Calculated 286 (280-300); Sodium 134 mEq/L (136-145); eGFR For African Americans > 60 (> 60); eGFR For Non-African Americans > 60 (> 60)
--- NOTE | 2018-08-28 13:44 | Internal Med Progress Note ---
Hospitalist Progress Note - Encounter Date of Encounter: 08/28/18 Time of Encounter: 13:36 - Subjective Interval History: Pt states he is diuresing well, and review of I&Os shows net negative several liters each day. Denies SOB, CP, N/V/D, and says his leg swelling and abd/scrotal swelling is improving although still swollen. Has proctor. - Exam Vitals: Temp Pulse Resp BP Pulse Ox 97.8 F 72 16 142/93 93 08/28/18 07:05 08/28/18 07:05 08/28/18 07:05 08/28/18 07:05 08/28/18 07:05 Exam: General: NAD, good eye contact, well appearing, obese Thoracic: Normal breath sounds b/l, no wheezing or crackles Cardio: Normal S1 and S2, regular rate and rhythm Abdomen: Soft, nontender, morbidly obese Extremities: Warm, well perfused. Significant edema to knees, mild dependent edema in thighs, none in lower abd wall Skin: Intact. No rashes, bruises, or ulcers Neuro: Awake, fully oriented. Speech fluent - Summary of Assessment and Plan Summary of Assessment and Plan: Jeramie Roca is a 57 M w hx super morbid obesity, HFpEF, HTN, DVT, venous stasis, who p/w anasarca. Acute on chronic HFpEF: Anasarca on admit, due to Lasic noncompliance. Superficial wounds to both legs most likely due to swelling. Diuresing well, net negative ~4L each day thus far. Has Proctor placed on admission. - woundRN consult - strict I&Os, daily weights, 1.5L restrict - continue Lasix 40 iv bid Urinary retention: swelling improved - remove proctor for voiding trial - trial flomax Super morbid obesity: BMI 78 HTN: controlled w diuresis Chronic back pain: outpatient follow up w Spine Dr Spaulding PPx: lovenox FEN: 1.5L, no MIVF Lines: PIV, remove proctor Consults: Code: DNRCC-A / DNI Dispo: patient requires inpatient eval and management at this time. Anticipate 3-4 days. Will be homegoing Internal Medicine: Result - Labs CBC & Chem 7: 08/25/18 06:33 08/28/18 08:46 Labs: BMP 08/28/18 08:46 Sodium 134 L Potassium 4.0 Chloride 95 L Carbon Dioxide 33 H BUN 25 H Creatinine 0.81 Glucose 167 H Calcium 9.0 Consult Discharge Plan - Plan Referrals: Erwin Mercado MD [Primary Care Provider] -
[2018-08-29 04:49] LABS: BUN/Creatinine Ratio 34 (6-26); Blood Urea Nitrogen 30 mg/dL (6-20); Calcium 9.3 mg/dL (8.6-10.3); Carbon Dioxide 31 mEq/L (23-29); Chloride 95 mEq/L (98-107); Glucose 155 mg/dL (70-105); Osmolality,Calculated 289 (280-300); Potassium 4.1 mEq/L (3.5-5.1); Sodium 135 mEq/L (136-145); eGFR For African Americans > 60 (> 60); eGFR For Non-African Americans > 60 (> 60)
[2018-08-29] MEDS: *HR* Heparin 5,000 UNIT/ML VIAL SQ SCH ×3 (06:14→22:42)
--- NOTE | 2018-08-29 07:55 | Internal Med Progress Note ---
Hospitalist Progress Note - Encounter Date of Encounter: 08/29/18 Time of Encounter: 07:55 - Subjective Interval History: Pt voiding well overnight, no issues. Says swelling continues to improve although legs still very swollen and red. No N/V/D, did have 2 BMs today. No CP or SOB. - Exam Vitals: Temp Pulse Resp BP Pulse Ox 97.7 F 83 12 132/67 92 08/29/18 06:43 08/29/18 06:43 08/29/18 06:43 08/29/18 06:43 08/29/18 06:43 Exam: General: NAD, good eye contact, well appearing, obese Thoracic: Normal breath sounds b/l, no wheezing or crackles Cardio: Normal S1 and S2, regular rate and rhythm Abdomen: Soft, nontender, morbidly obese Extremities: Warm, well perfused. Significant edema to knees, mild dependent edema in thighs, none in lower abd wall, does have some suprapubic swelling Skin: Some erythematous patches b/l LE Neuro: Awake, fully oriented. Speech fluent - Summary of Assessment and Plan Summary of Assessment and Plan: Jeramie Roca is a 57 M w hx super morbid obesity, HFpEF, HTN, DVT, venous stasis, who p/w massive swelling, wt gain, and difficulty urinating, consistent with acute on chronic HFpEF and anasarca causing urinary retention. Acute on chronic HFpEF: Anasarca on admit, due to Lasix noncompliance. Superficial erythema and wounds to both legs most likely due to swelling. Diuresing well, net negative ~4L each day thus far. SBP and Cr stable, UOP good. - strict I&Os, daily weights, 1.5L restrict - continue Lasix 40 iv bid Urinary retention: resolved as swelling improving, Fair removed and successfully voiding, continue flomax Super morbid obesity: BMI 78 HTN: controlled w diuresis Chronic back pain: outpatient follow up w Spine Dr Spaulding PPx: lovenox FEN: 1.5L, no MIVF Lines: PIV Consults: Code: DNRCC-A / DNI Dispo: patient requires inpatient eval and management at this time. Anticipate 3-4 days. Will be homegoing Internal Medicine: Result - Labs CBC & Chem 7: 08/25/18 06:33 08/29/18 03:59 Labs: BMP 08/28/18 08/29/18 08:46 03:59 Sodium 134 L 135 L Potassium 4.0 4.1 Chloride 95 L 95 L Carbon Dioxide 33 H 31 H BUN 25 H 30 H Creatinine 0.81 0.89 Glucose 167 H 155 H Calcium 9.0 9.3 Consult Discharge Plan - Plan Referrals: Erwin Mercado MD [Primary Care Provider] -
[2018-08-29] MEDS: FLUoxetine 20 MG CAPSULE PO SCH (08:05)
[2018-08-29] MEDS: Multivit/Ca/Min/Fe/FA 1 TAB TABLET PO SCH (08:06)
[2018-08-29] MEDS: Acetaminophen 325 MG TABLET PO PRN ×2 (08:06→20:26)
[2018-08-29] MEDS: Aspirin Enteric Coated 81 MG Tablet PO SCH (08:06)
[2018-08-29] MEDS: Furosemide 40 MG/4 ML VIAL IVP SCH ×2 (08:06→18:09)
--- NOTE | 2018-08-29 16:27 | Electrocardiograph Report ---
[address] [address] Test Date: 2018-08-24 Pat Name: Jeramie Roca Department: [id number] Room: 2NE27 Gender: Molded Parts Inspector: : 1960 Requested By: Ty Castillo Order Number: [id number] Reading MD: Dona Chandler Measurements Intervals [place] Rate: 74 P: 18 MI: 189 QRS: 47 QRSD: 164 T: 14 QT: 435 QTc: 483 Interpretive Statements Sinus rhythm Right bundle branch block Electronically Signed On 08-29-2018 16:25:57 EDT by Dona Chandler
[2018-08-30] MEDS: *HR* Heparin 5,000 UNIT/ML VIAL SQ SCH ×3 (05:18→22:17)
[2018-08-30] MEDS: Acetaminophen 325 MG TABLET PO PRN ×3 (05:18→22:40)
[2018-08-30 07:43] LABS: Hemoglobin 13.5 g/dL (12.9-16.9); Mean Corpuscular HGB Conc 32.1 g/dL (31.6-35.5); Mean Corpuscular Hemoglobin 27.2 pg (28.0-33.3); Mean Corpuscular Volume 84.7 fL (83.0-100.0); Mean Platelet Volume 10.5 fL (9.4-12.4); Platelet Count 220 K/mcL (140-400); Red Blood Count 4.96 M/mcL (4.19-5.50); Red Cell Distribution Width 16.6 % (11.5-14.5); White Blood Count 7.2 K/mcL (4.3-11.1)
--- NOTE | 2018-08-30 07:51 | Internal Med Progress Note ---
Hospitalist Progress Note - Encounter Date of Encounter: 08/30/18 Time of Encounter: 07:51 - Subjective Interval History: Diuresing well. Pt denies SOB, CP, N/V/D. Still has leg swelling but says it continues to improve a bit each day. Pt states desire to leave, but daughter present today who says she will ensure her father will stay as long as requested to get this improved. - Exam Vitals: Temp Pulse Resp BP Pulse Ox 98.4 F 82 16 133/74 94 08/30/18 07:41 08/30/18 07:41 08/30/18 07:41 08/30/18 07:41 08/30/18 07:41 Exam: General: NAD, good eye contact, well appearing, obese Thoracic: Normal breath sounds b/l, no wheezing or crackles Cardio: Normal S1 and S2, regular rate and rhythm Abdomen: Soft, nontender, morbidly obese Extremities: Warm, well perfused. Significant edema to knees although noticeable improvement in amount of pitting today, only trace dependent edema in thighs and suprapubic area Skin: Some erythematous patches b/l LE Neuro: Awake, fully oriented. Speech fluent - Summary of Assessment and Plan Summary of Assessment and Plan: Jeramie Roca is a 57 M w hx super morbid obesity, HFpEF, HTN, DVT, venous stasis, who p/w massive swelling, wt gain, and difficulty urinating, consistent with acute on chronic HFpEF and anasarca causing urinary retention. Acute on chronic HFpEF: Anasarca on admit, due to Lasix noncompliance. Superficial erythema and wounds to both legs most likely due to swelling. Diuresing well, although overall net negative has decreased the last two days. SBP and Cr stable, UOP good but decreasing. - strict I&Os, daily weights, 1.5L restrict - increase Lasix to 60 iv bid today, and consider switch to PO dosing tomorrow Super morbid obesity: BMI 78 HTN: controlled w diuresis Chronic back pain: outpatient follow up w Spine Dr Spaulding PPx: lovenox FEN: 1.5L, no MIVF Lines: PIV Consults: Code: DNRCC-A / DNI Dispo: patient requires inpatient eval and management at this time. Anticipate 2 days. Will be homegoing Internal Medicine: Result - Labs CBC & Chem 7: 08/30/18 07:12 08/30/18 07:12 Labs: Short CBC 08/30/18 Range/Units 07:12 WBC 7.2 (4.3-11.1) K/mcL Hgb 13.5 (12.9-16.9) g/dL Hct 42.0 (37.5-50.1) % Plt Count 220 (140-400) K/mcL Consult Discharge Plan - Plan Referrals: Erwin Mercado MD [Primary Care Provider] -
[2018-08-30 07:54] LABS: BUN/Creatinine Ratio 39 (6-26); Blood Urea Nitrogen 33 mg/dL (6-20); Calcium 9.4 mg/dL (8.6-10.3); Carbon Dioxide 29 mEq/L (23-29); Chloride 96 mEq/L (98-107); Glucose 133 mg/dL (70-105); Magnesium 2.1 mg/dL (1.6-2.6); Osmolality,Calculated 287 (280-300); Potassium 4.2 mEq/L (3.5-5.1); Sodium 134 mEq/L (136-145); eGFR For African Americans > 60 (> 60); eGFR For Non-African Americans > 60 (> 60)
[2018-08-30] MEDS: Multivit/Ca/Min/Fe/FA 1 TAB TABLET PO SCH (09:58)
[2018-08-30] MEDS: Aspirin Enteric Coated 81 MG Tablet PO SCH (09:58)
[2018-08-30] MEDS: FLUoxetine 20 MG CAPSULE PO SCH (09:58)
[2018-08-30] MEDS: Furosemide 40 MG/4 ML VIAL IVP SCH ×2 (09:58→17:34)
[2018-08-30] MEDS ORDERED: Furosemide 40 MG/4 ML VIAL IVP ONE (10:36)
[2018-08-31] MEDS: *HR* Heparin 5,000 UNIT/ML VIAL SQ SCH ×3 (05:55→21:56)
[2018-08-31] MEDS: Acetaminophen 325 MG TABLET PO PRN (05:58)
--- NOTE | 2018-08-31 07:51 | Internal Med Progress Note ---
Hospitalist Progress Note - Encounter Date of Encounter: 08/31/18 Time of Encounter: 07:51 - Subjective Interval History: Pt wants to go home. Says his legs are less swollen and he continues to diurese well. Denies CP, SOB, N/V/D. - Exam Vitals: Temp Pulse Resp BP Pulse Ox 97.9 F 80 16 110/68 99 08/31/18 07:11 08/31/18 07:11 08/31/18 07:11 08/31/18 07:11 08/31/18 04:35 Exam: General: NAD, good eye contact, well appearing, obese Thoracic: Normal breath sounds b/l, no wheezing or crackles Cardio: Normal S1 and S2, regular rate and rhythm Abdomen: Soft, nontender, morbidly obese Extremities: Warm, well perfused. Significant edema to knees although mild i mprovement again today, persistent mild dependent edema in distal lateral thighs and suprapubic area Skin: Some erythematous patches b/l LE Neuro: Awake, fully oriented. Speech fluent - Summary of Assessment and Plan Summary of Assessment and Plan: Jeramie Roca is a 57 M w hx super morbid obesity, HFpEF, HTN, DVT, venous stasis, who p/w massive swelling, wt gain, and difficulty urinating, consistent with acute on chronic HFpEF and anasarca causing urinary retention. Acute on chronic HFpEF: Anasarca on admit, due to Lasix noncompliance. Superficial erythema and wounds to both legs most likely due to swelling. Acute urinary retention also likely due to swelling, resolved w diuresis. Diuresing well, SBP and Cr stable, UOP great - strict I&Os, daily weights, 1.5L restrict - switch to Lasix 80 po bid Super morbid obesity: BMI 78 HTN: controlled w diuresis Chronic back pain: outpatient follow up w Spine Dr Spaulding PPx: lovenox FEN: 1.5L, no MIVF Lines: PIV Consults: Code: DNRCC-A / DNI Dispo: patient requires inpatient eval and management at this time. Anticipate d/c tomorrow if diureses well w PO lasix, will be homegoing Internal Medicine: Result - Labs CBC & Chem 7: 08/30/18 07:12 08/31/18 07:08 Labs: BMP 08/30/18 07:12 Sodium 134 L Potassium 4.2 Chloride 96 L Carbon Dioxide 29 BUN 33 H Creatinine 0.84 Glucose 133 H Calcium 9.4 Consult Discharge Plan - Plan Referrals: Erwin Mercado MD [Primary Care Provider] -
[2018-08-31 07:55] LABS: BUN/Creatinine Ratio 38 (6-26); Blood Urea Nitrogen 32 mg/dL (6-20); Calcium 9.1 mg/dL (8.6-10.3); Carbon Dioxide 31 mEq/L (23-29); Chloride 94 mEq/L (98-107); Glucose 136 mg/dL (70-105); Osmolality,Calculated 289 (280-300); Sodium 135 mEq/L (136-145); eGFR For African Americans > 60 (> 60); eGFR For Non-African Americans > 60 (> 60)
[2018-08-31] MEDS: Multivit/Ca/Min/Fe/FA 1 TAB TABLET PO SCH (10:14)
[2018-08-31] MEDS: Furosemide 40 MG/4 ML VIAL IVP SCH (10:14)
[2018-08-31] MEDS: Aspirin Enteric Coated 81 MG Tablet PO SCH (10:18)
[2018-08-31] MEDS: Ibuprofen 400 MG TABLET PO PRN ×2 (10:18→16:29)
[2018-08-31] MEDS: FLUoxetine 20 MG CAPSULE PO SCH (10:18)
[2018-08-31] MEDS: Furosemide 40 MG TABLET PO SCH (16:26)
[2018-08-31] MEDS ORDERED: Furosemide 40 MG TABLET PO SCH ×2 (17:00)
[2018-08-31] MEDS: Nystatin Cream 15 GM TUBE TP SCH (21:56)
[2018-09-01] MEDS: *HR* Heparin 5,000 UNIT/ML VIAL SQ SCH (05:10)
[2018-09-01] MEDS: Ibuprofen 400 MG TABLET PO PRN ×2 (05:13→15:00)
[2018-09-01 06:49] LABS: BUN/Creatinine Ratio 37 (6-26); Blood Urea Nitrogen 34 mg/dL (6-20); Calcium 9.3 mg/dL (8.6-10.3); Carbon Dioxide 31 mEq/L (23-29); Chloride 94 mEq/L (98-107); Glucose 116 mg/dL (70-105); Osmolality,Calculated 287 (280-300); Potassium 4.2 mEq/L (3.5-5.1); Sodium 134 mEq/L (136-145); eGFR For African Americans > 60 (> 60); eGFR For Non-African Americans > 60 (> 60)
[2018-09-01 07:10] VITALS: BP 130/72
[2018-09-01] MEDS: Aspirin Enteric Coated 81 MG Tablet PO SCH (09:07)
[2018-09-01] MEDS: Furosemide 40 MG TABLET PO SCH (09:07)
[2018-09-01] MEDS: FLUoxetine 20 MG CAPSULE PO SCH (09:07)
[2018-09-01] MEDS: Multivit/Ca/Min/Fe/FA 1 TAB TABLET PO SCH (09:07)
--- NOTE | 2018-09-01 09:11 | Discharge Summary ---
- NOTES TO OUTPATIENT PROVIDER Notes to Outpatient Provider: Lasix increased to 80 po bid, needs BMP. Morbid obesity w several comorbidities, suggest bariatric eval if not already done. Date of Encounter: 09/01/18 Time of Encounter: 09:08 Hospital course: Dear Doctors, I recently had the opportunity to care for this patient during their recent hospital stay at [facility]. Jeramie Roca is a 57 M w hx super morbid obesity, HFpEF, HTN, DVT, venous stasis, who presented at time of admission from Orthopedic outpatient appointment with massive swelling, wt gain, and difficulty urinating. In the ED, pt w weeping edema and diffuse swelling, and unable to void due to extensive edema, consistent with acute on chronic HFpEF and anasarca causing urinary retention. In the hospital, pt was placed on Lasix IV. Fair was inserted for a few days to relieve urinary obstruction, which resolved with diuresis. Pt was net negative 20L at time of discharge, and wt down from 200 to 188 kg. He still had significant edema at time of discharge, but it was much improved and patient was converted to PO lasix and monitored for an additional 24h to ensure ongoing diuresis. He will follow up PCP and Cardio. Dx: acute on chronic HFpEF, anasarca Pertinent tests/consults: TTE unchanged from baseline Follow up: PCP 1 week, Cardio 1-2 weeks Tests pending: none Med changes: - increase lasix from 40 daily to 80 po bid until outpatient f/u - new tamsulosin 0.4 - decrease lisinopril from 40 to 10 daily - new nystatin topical Mental status: awake, fully oriented Code status: Photographer Model spent on discharge: 35 minutes It has been my pleasure participating in this patient's care. Please contact me with any questions or concerns regarding their hospital stay. Sincerely, Rasheed Eng MD - Discharge Medications Prescriptions: New Tamsulosin [Flomax] 0.4 mg PO DAILY #30 capsule Nystatin Cream [Mycostatin Cream] 1 appl TP TID #1 tube Lisinopril [Zestril] 10 mg PO DAILY #30 tablet Continued FLUoxetine HCl [Prozac] 80 mg PO DAILY Omeprazole 40 mg PO DAILY Potassium Chloride [Klor-Con 10] 10 meq PO DAILY Aspirin Enteric Coated [Aspirin EC] 81 mg PO DAILY Changed Furosemide [Lasix] 80 mg PO BID #120 tablet Discontinued hydroCHLOROthiazide [Hydrochlorothiazide] 12.5 mg PO DAILY Lisinopril [Zestril] 40 mg PO DAILY Multivitamin [One Daily] 1 each PO DAILY Home Medications: FLUoxetine HCl [Prozac] 80 mg PO DAILY 07/26/16 [History] Omeprazole 40 mg PO DAILY 07/26/16 [History] Aspirin Enteric Coated [Aspirin EC] 81 mg PO DAILY 08/25/18 [History] Potassium Chloride [Klor-Con 10] 10 meq PO DAILY 08/25/18 [History] Furosemide [Lasix] 80 mg PO BID #120 tablet 09/01/18 [Rx] Lisinopril [Zestril] 10 mg PO DAILY #30 tablet 09/01/18 [Rx] Nystatin Cream [Mycostatin Cream] 1 appl TP TID #1 tube 09/01/18 [Rx] Tamsulosin [Flomax] 0.4 mg PO DAILY #30 capsule 09/01/18 [Rx] Allergies/Adverse Reactions: Allergy/AdvReac Type Severity Reaction Status Date / Time No Known Allergies Allergy Verified 08/25/18 17:44 Date of admission: 08/28/18 18:56 Primary care physician: Erwin Mercado MD Consults: 08/24/18 22:43 Consult to Orthopedic Surgery [CONS] Stat Consulting Provider: Kevin Spaulding Jr Reason for Consult: Back pain; urinary retention Call Completed: Yes 08/26/18 11:31 Consult to Wound Care [CONS] Routine Reason for Consult: bilateral lower extremity venous stasis Call Completed: No 08/26/18 11:33 Consult to Nutrition [CONS] Routine Comment: Consulting Provider: NUTRITION Reason for Dietary Consult: Diet Education 08/26/18 11:40 Consult to Occupational Therapy [CONS] Routine Comment: Evaluate, develop and implement POC Reason for Consult: Generalized weakness Does patient have active BEDREST order?: No Is patient medically & hemodynamically stable?: Yes Patient assessed for mobility or mobilized this visit?: No Consult to Physical Therapy [CONS] Routine Comment: Evaluate, develop and implement POC Reason for Consult: Generalized weakness Does patient have active BEDREST order?: No Is patient medically & hemodynamically stable?: Yes Patient assessed for mobility or mobilized this visit?: No Consult to Foreign Trade Teacher [CONS] Routine Reason for SW Consult: Discharge plan - Constitutional Vitals: Temp Pulse Resp BP Pulse Ox 97.9 F 78 16 130/72 96 09/01/18 07:08 09/01/18 07:08 09/01/18 07:08 09/01/18 07:08 09/01/18 04:03 Exam: General: NAD, good eye contact, well appearing, obese Thoracic: Normal breath sounds b/l, no wheezing or crackles Cardio: Normal S1 and S2, regular rate and rhythm Abdomen: Soft, nontender, morbidly obese Extremities: Warm, well perfused. Significant edema to knees although mild improvement each day, persistent mild dependent edema in distal lateral thighs and suprapubic area Skin: Some erythematous patches b/l LE Neuro: Awake, fully oriented. Speech fluent - Patient Status Disposition: Home, Self-Care Condition: Serious Functional capacity at discharge: independent ambulation Overall status at discharge: patient is progressing back to baseline - Discharge Instructions Follow Up With: Erwin Mercado MD [Primary Care Provider] - Dona Chandler MD [Partnered Physician] - (2 weeks) - Diet and Activity Activity: resume usual activities as tolerated Diet: low salt diet
[2018-09-01] MEDS: Nystatin Cream 15 GM TUBE TP SCH (09:12)
== END 2018-09-01 14:20 | disposition home or self-care (01) | DRG 292 ==
LOC: EMEROOARM 15:23 → 2NENU 15:23 → SUATTDRO 08-25 00:04 → 2NENU 08-25 00:43
PROVIDERS: ADMIT Family Medicine; ATTEND Internal Medicine

== ENCOUNTER 2021-06-27 12:35 | Inpatient (IN) ==
[2021-06-27] MEDS ORDERED: Furosemide 40 MG/4 ML VIAL IVP ONE (14:11)
[2021-06-27] MEDS ORDERED: metOLazone 5 MG TABLET PO SCH (14:15)
[2021-06-27 14:47] LABS: Basophils # 0.1 K/mcL (0.0-0.2); Basophils % 0.7 %; Eosinophils # 0.2 K/mcL (0.0-0.6); Eosinophils % 2.9 %; Hematocrit 43.3 % (37.5-50.1); Hemoglobin 12.8 g/dL (12.9-16.9); Immature Granulocytes % 0.6 % (0-4); Lymphocytes # 0.7 K/mcL (0.6-4.6); Lymphocytes % 9.7 %; Mean Corpuscular HGB Conc 29.6 g/dL (31.6-35.5); Mean Corpuscular Hemoglobin 26.3 pg (28.0-33.3); Mean Corpuscular Volume 89.1 fL (83.0-100.0); Mean Platelet Volume 10.1 fL (9.4-12.4); Monocytes # 0.4 K/mcL (0.0-1.3); Monocytes % 6.4 %; Neutrophils # 5.5 K/mcL (1.6-8.9); Platelet Count 213 K/mcL (140-400); Red Blood Count 4.86 M/mcL (4.19-5.50); Segmented Neutrophils % 79.7 %; White Blood Count 6.9 K/mcL (4.3-11.1)
[2021-06-27 14:54] LABS: INR 1.2; Prothrombin Time 13.5 Seconds (9.4-12.1)
[2021-06-27 15:13] LABS: BUN/Creatinine Ratio 17 (6-26); Blood Urea Nitrogen 21 mg/dL (8-23); Carbon Dioxide 40 mEq/L (23-29); Chloride 95 mEq/L (98-107); Glucose 117 mg/dL (70-105); Osmolality,Calculated 298 (280-300); Potassium 3.5 mEq/L (3.5-5.1); Sodium 142 mEq/L (136-145); Troponin I < 0.03 ng/mL (< 0.04); eGFR For African Americans > 60 (> 60); eGFR For Non-African Americans 59 (> 60)
[2021-06-27] MEDS ORDERED: Naloxone 0.4 MG/ML INJ IVP PRN (16:36)
[2021-06-27] MEDS ORDERED: MOM Conc 10 ML UD.LIQ PO PRN (16:36)
[2021-06-27] MEDS ORDERED: Ondansetron 4 MG/2 ML VIAL IVP PRN (16:36)
[2021-06-27] MEDS ORDERED: Mag Hydrox/Al Hydrox/Simeth 30 ML UDC PO PRN (16:36)
[2021-06-27] MEDS ORDERED: Melatonin 3 MG TABLET PO PRN (16:36)
[2021-06-27] MEDS: *HR* Heparin 5,000 UNIT/ML VIAL SQ SCH (18:57)
[2021-06-27] MEDS ORDERED: Acetaminophen 325 MG TABLET PO ONE (22:45)
[2021-06-28] MEDS: *HR* Heparin 5,000 UNIT/ML VIAL SQ SCH ×2 (05:04→16:58)
[2021-06-28] MEDS: Furosemide 40 MG/4 ML VIAL IVP SCH ×2 (05:07→14:46)
[2021-06-28 06:41] LABS: BUN/Creatinine Ratio 18 (6-26); Blood Urea Nitrogen 20 mg/dL (8-23); Carbon Dioxide 40 mEq/L (23-29); Chloride 93 mEq/L (98-107); Glucose 121 mg/dL (70-105); Magnesium 2.1 mg/dL (1.6-2.6); Osmolality,Calculated 294 (280-300); Phosphorous 4.2 mg/dL (2.7-4.5); Potassium 3.2 mEq/L (3.5-5.1); Sodium 140 mEq/L (136-145); eGFR For African Americans > 60 (> 60); eGFR For Non-African Americans > 60 (> 60)
[2021-06-28] MEDS ORDERED: Furosemide 40 MG/4 ML VIAL IVP SCH (15:30)
[2021-06-28] MEDS ORDERED: Acetaminophen 325 MG TABLET PO ONE (20:02)
[2021-06-29] MEDS: Furosemide 40 MG/4 ML VIAL IVP SCH ×2 (06:02→14:55)
[2021-06-29] MEDS: *HR* Heparin 5,000 UNIT/ML VIAL SQ SCH ×2 (06:02→17:08)
[2021-06-29 06:05] LABS: BUN/Creatinine Ratio 21 (6-26); Blood Urea Nitrogen 22 mg/dL (8-23); Calcium 9.6 mg/dL (8.6-10.3); Carbon Dioxide 39 mEq/L (23-29); Chloride 90 mEq/L (98-107); Glucose 109 mg/dL (70-105); Osmolality,Calculated 284 (280-300); Potassium 3.4 mEq/L (3.5-5.1); Sodium 135 mEq/L (136-145); eGFR For African Americans > 60 (> 60); eGFR For Non-African Americans > 60 (> 60)
[2021-06-29] MEDS ORDERED: ALPRAZolam 0.5 MG TABLET PO PRN (07:51)
[2021-06-29] MEDS: FLUoxetine 20 MG CAPSULE PO SCH (08:51)
[2021-06-29] MEDS: lisinopriL 20 MG TABLET PO SCH (08:51)
[2021-06-29] MEDS: Acetaminophen 325 MG TABLET PO PRN (17:08)
[2021-06-30] MEDS: Furosemide 40 MG/4 ML VIAL IVP SCH ×2 (05:11→15:45)
[2021-06-30] MEDS: *HR* Heparin 5,000 UNIT/ML VIAL SQ SCH ×2 (05:11→19:36)
[2021-06-30] MEDS: lisinopriL 20 MG TABLET PO SCH (10:06)
[2021-06-30] MEDS: FLUoxetine 20 MG CAPSULE PO SCH (10:06)
[2021-06-30] MEDS: Acetaminophen 325 MG TABLET PO PRN (12:10)
[2021-06-30] MEDS: Nystatin POWDER 30 GM BOTTLE TP SCH ×2 (14:51→22:17)
[2021-07-01] MEDS: *HR* Heparin 5,000 UNIT/ML VIAL SQ SCH (06:11)
[2021-07-01] MEDS: Furosemide 40 MG/4 ML VIAL IVP SCH (06:11)
[2021-07-01 06:56] VITALS: O2SAT 92
[2021-07-01 07:32] LABS: BUN/Creatinine Ratio 28 (6-26); Blood Urea Nitrogen 35 mg/dL (8-23); Calcium 8.9 mg/dL (8.6-10.3); Carbon Dioxide 37 mEq/L (23-29); Chloride 91 mEq/L (98-107); Glucose 114 mg/dL (70-105); Osmolality,Calculated 287 (280-300); Potassium 3.6 mEq/L (3.5-5.1); Sodium 134 mEq/L (136-145); eGFR For African Americans > 60 (> 60); eGFR For Non-African Americans 59 (> 60)
[2021-07-01] MEDS: FLUoxetine 20 MG CAPSULE PO SCH (08:38)
[2021-07-01] MEDS: Nystatin POWDER 30 GM BOTTLE TP SCH (08:38)
[2021-07-01] MEDS: lisinopriL 20 MG TABLET PO SCH (08:39)
[2021-07-01] MEDS: Acetaminophen 325 MG TABLET PO PRN (08:45)
[2021-07-01 09:50] LABS: Estimated Average Glucose 126 mg/dl
[2021-07-01 10:54] VITALS: BP 105/53; PULSE 64; TEMP 97.7
== END 2021-07-01 14:49 | disposition home or self-care (01) | DRG 291 ==
LOC: 3ANU 12:35 → EMEROOARM 12:35 → 3ANU 16:40 → SUATTDRO 06-28 14:57
PROVIDERS: ADMIT Internal Medicine; ATTEND Family Medicine

== ENCOUNTER 2021-12-02 11:02 | Inpatient (IN) ==
[2021-12-02 12:54] LABS: Basophils % 0.5 %; Eosinophils # 0.1 K/mcL (0.0-0.6); Eosinophils % 1.5 %; Hematocrit 41.5 % (37.5-50.1); Hemoglobin 12.5 g/dL (12.9-16.9); Immature Granulocytes % 0.5 % (0-4); Lymphocytes # 0.6 K/mcL (0.6-4.6); Lymphocytes % 8.7 %; Mean Corpuscular HGB Conc 30.1 g/dL (31.6-35.5); Mean Corpuscular Hemoglobin 27.1 pg (28.0-33.3); Mean Platelet Volume 10.7 fL (9.4-12.4); Monocytes # 0.4 K/mcL (0.0-1.3); Monocytes % 6.3 %; Neutrophils # 5.4 K/mcL (1.6-8.9); Platelet Count 180 K/mcL (140-400); Red Blood Count 4.61 M/mcL (4.19-5.50); Red Cell Distribution Width 15.6 % (11.5-14.5); Segmented Neutrophils % 82.5 %; White Blood Count 6.5 K/mcL (4.3-11.1)
[2021-12-02 13:43] LABS: BUN/Creatinine Ratio 19 (6-26); Blood Urea Nitrogen 25 mg/dL (8-23); Carbon Dioxide 34 mEq/L (23-29); Chloride 97 mEq/L (98-107); Glucose 108 mg/dL (70-105); Osmolality,Calculated 295 (280-300); Potassium 3.7 mEq/L (3.5-5.1); Sodium 140 mEq/L (136-145); Troponin I < 0.03 ng/mL (< 0.04)
[2021-12-02] MEDS ORDERED: Iopamidol - 370 500 ML MLS IVP ONE (17:59)
[2021-12-02] MEDS ORDERED: Furosemide 40 MG/4 ML VIAL IVP ONE (18:01)
[2021-12-02] MEDS ORDERED: Naloxone 0.4 MG/ML INJ IVP PRN (21:03)
[2021-12-02] MEDS ORDERED: Ondansetron 4 MG/2 ML VIAL IVP PRN (21:03)
[2021-12-02] MEDS: Acetaminophen 325 MG TABLET PO PRN (22:24)
[2021-12-03 03:17] LABS: Hematocrit 37.6 % (37.5-50.1); Hemoglobin 11.6 g/dL (12.9-16.9); Mean Corpuscular HGB Conc 30.9 g/dL (31.6-35.5); Mean Corpuscular Hemoglobin 27.5 pg (28.0-33.3); Mean Corpuscular Volume 89.1 fL (83.0-100.0); Mean Platelet Volume 10.4 fL (9.4-12.4); Platelet Count 178 K/mcL (140-400); Red Blood Count 4.22 M/mcL (4.19-5.50); Red Cell Distribution Width 15.8 % (11.5-14.5); White Blood Count 8.1 K/mcL (4.3-11.1)
[2021-12-03 03:38] LABS: Calcium 8.5 mg/dL (8.6-10.3); Potassium 3.4 mEq/L (3.5-5.1)
[2021-12-03] MEDS ORDERED: Furosemide 80 MG in 0.9 % Sodium Chloride 50 ML IV SCH (09:00)
[2021-12-03] MEDS ORDERED: Furosemide 40 MG/4 ML VIAL IVP SCH (09:00)
[2021-12-03] MEDS ORDERED: GuaiFENesin Liq 200 MG/10 ML UDC PO PRN (09:25)
[2021-12-03] MEDS: Acetaminophen 325 MG TABLET PO PRN (09:46)
[2021-12-03 10:15] LABS: Albumin 3.6 g/dL (3.5-5.7); Albumin/Globulin Ratio 1.2 (1.1-2.2); Bilirubin,Direct 0.2 mg/dL (0.0-0.2); Bilirubin,Indirect 0.7 mg/dL (0.0-1.0); Bilirubin,Total 0.9 mg/dL (0.3-1.0); Total Protein 6.6 g/dL (6.4-8.9)
[2021-12-03 12:56] LABS: Bilirubin,Urine Negative (Negative); Blood,Urine Negative (Negative); Clarity,Urine Clear (Clear); Color,Urine Yellow (Yellow); Glucose,Urine (UA) Normal (Normal); Ketones,Urine Negative (Negative); Leukocyte Esterase,Urine Negative (Negative); Nitrite,Urine Negative (Negative); PH,Urine 6.5 pH Units (5.0-8.0); Protein,Urine Negative (Neg-Trace); Specific Gravity,Urine 1.022 (1.010-1.025)
[2021-12-03 13:45] LABS: Adenovirus Not Detected (Not Detect); Bordetella Pertussis Not Detected (Not Detect); Chlamydophila pneumoniae Not Detected (Not Detect); Coronavirus 229E Not Detected (Not Detect); Coronavirus HKU1 Not Detected (Not Detect); Coronavirus NL63 Not Detected (Not Detect); Coronavirus OC43 Not Detected (Not Detect); Human Metapneumovirus Not Detected (Not Detect); Human Rhinovirus/Enterovirus DETECTED (Not Detect); Influenza A Subtype 2009 H1 Not Detected (Not Detect); Influenza B Not Detected (Not Detect); Mycoplasma pneumoniae Not Detected (Not Detect); Parainfluenza Virus 1 Not Detected (Not Detect); Parainfluenza Virus 2 Not Detected (Not Detect); Parainfluenza Virus 3 Not Detected (Not Detect); Parainfluenza Virus 4 Not Detected (Not Detect); Respiratory Syncytial Virus Not Detected (Not Detect); SARS-CoV-2 Not Detected (Not Detect)
[2021-12-03] MEDS: Bumetanide 1 MG/4 ML VIAL IVP SCH (17:46)
[2021-12-03] MEDS ORDERED: ALPRAZolam 0.5 MG TABLET PO PRN (20:00)
[2021-12-03] MEDS: FLUoxetine 20 MG CAPSULE PO SCH (21:39)
[2021-12-04 05:10] LABS: Calcium 8.5 mg/dL (8.6-10.3); Potassium 3.7 mEq/L (3.5-5.1)
[2021-12-04] MEDS: Bumetanide 1 MG/4 ML VIAL IVP SCH ×2 (09:15→17:14)
[2021-12-04] MEDS: lisinopriL 20 MG TABLET PO SCH (09:16)
[2021-12-04] MEDS: FLUoxetine 20 MG CAPSULE PO SCH (09:16)
[2021-12-04] MEDS: *HR* Heparin 5,000 UNIT/ML VIAL SQ SCH ×2 (14:45→20:55)
[2021-12-04] MEDS: Acetaminophen 325 MG TABLET PO PRN (20:54)
[2021-12-05 03:20] LABS: Calcium 8.4 mg/dL (8.6-10.3); Magnesium 2.1 mg/dL (1.6-2.6); Potassium 3.8 mEq/L (3.5-5.1)
[2021-12-05] MEDS: *HR* Heparin 5,000 UNIT/ML VIAL SQ SCH ×3 (06:52→20:10)
[2021-12-05] MEDS: Bumetanide 1 MG/4 ML VIAL IVP SCH ×2 (09:02→18:12)
[2021-12-05] MEDS: FLUoxetine 20 MG CAPSULE PO SCH (09:03)
[2021-12-05] MEDS: lisinopriL 20 MG TABLET PO SCH (09:03)
[2021-12-05] MEDS: Acetaminophen 325 MG TABLET PO PRN (15:50)
[2021-12-06 05:46] LABS: Calcium 8.7 mg/dL (8.6-10.3)
[2021-12-06] MEDS: *HR* Heparin 5,000 UNIT/ML VIAL SQ SCH (06:31)
[2021-12-06 08:13] VITALS: BP 120/71; TEMP 98.6
[2021-12-06] MEDS: Bumetanide 1 MG/4 ML VIAL IVP SCH (08:20)
[2021-12-06] MEDS: FLUoxetine 20 MG CAPSULE PO SCH (08:21)
[2021-12-06] MEDS: lisinopriL 20 MG TABLET PO SCH (08:21)
[2021-12-06 08:25] VITALS: PULSE 62
[2021-12-06 11:41] VITALS: O2SAT 90
== END 2021-12-06 13:17 | disposition home health service (06) | DRG 291 ==
LOC: 2ANU 11:02 → EMEROOARM 11:02 → SUATTDRO 21:00 → 2ANU 21:25
PROVIDERS: ADMIT Internal Medicine; ATTEND Family Medicine